=== PATIENT | female | born 1960 | race Caucasian/White ===

== ENCOUNTER 2017-12-01 15:23 | Emergency (ER) | payer MEDICARE, MEDICAID ==
[~2017-12-01] VITALS: Ht 154.9 cm; Wt 127.3 kg
[~2017-12-01 15:23] MED LIST: APIX5TAB3 PO; CHOL100046 PO; CYCL10TA26 PO; FURO-150 PO; HYDR-3972 PO; HYDR200T84 PO; LEVA0.6319 NEB; METF500T4 PO; METO5TAB98 PO; OMEP20TA5 PO; POTA8CAP9 PO; PRED10TA PO; ROFL500T7 PO; ROPI0.5T2 PO; SULF500T59 PO; SUMA100T PO; TRAM50TA2 PO
[2017-12-01] MEDS ORDERED: methylPREDNISolone sod succ 125mg/2ml vial IV ONE (16:05)
[2017-12-01] MEDS ORDERED: ipratropium/albuterol 3ml nebule NEB ONE (16:05)
[2017-12-01] MEDS ORDERED: furosemide 40mg/4ml inj IV ONE (16:05)
[2017-12-01 16:39] LABS: BASOPHILS % (AUTO) 0.2 % (0-1); EOSINOPHILS # (AUTO) 0.3 X10'3 (0-0.9); EOSINOPHILS % (AUTO) 1.9 % (0-6); HEMATOCRIT 32.1 % (35.0-45.0); HEMOGLOBIN 10.4 g/dl (12.0-16.0); LYMPHOCYTES # (AUTO) 1.2 X10'3 (1.1-4.8); LYMPHOCYTES % (AUTO) 8.2 % (21-51); MEAN CORPUSCULAR HEMOGLOBIN 25.3 PG (27.0-31.0); MEAN CORPUSCULAR HGB CONC 32.4 % (33.0-36.5); MEAN PLATELET VOLUME 8.5 FL (7.4-10.4); MONOCYTES # (AUTO) 0.6 X10'3 (0-0.9); MONOCYTES % (AUTO) 4.1 % (2-12); NEUTROPHILS # (AUTO) 12.2 X10'3 (1.8-7.7); NEUTROPHILS % (AUTO) 85.6 % (42-75); PLATELET COUNT 426 X10'3 (140-440); RED BLOOD COUNT 4.11 X10'6 (4.20-5.60); RED CELL DISTRIBUTION WIDTH 18.8 % (11.5-14.5); WHITE BLOOD COUNT 14.2 X10'3 (4.5-11.0)
[2017-12-01 17:01] LABS: ALANINE AMINOTRANSFERASE 17 U/L (12-78); ALBUMIN/GLOBULIN RATIO 0.6 (1.1-1.5); ALKALINE PHOSPHATASE 110 IU/L (46-116); ANION GAP 10 (8-16); ASPARTATE AMINO TRANSFERASE 23 U/L (10-37); BILIRUBIN,TOTAL 0.4 MG/DL (0.1-1.0); BLOOD UREA NITROGEN 5 MG/DL (7-18); BUN/CREATININE RATIO 7.9 (6.6-38.0); CALCIUM 9.3 MG/DL (8.5-10.1); CHLORIDE 99 MMOL/L (99-107); CREATININE 0.63 MG/DL (0.40-0.90); GLUCOSE 125 MG/DL (70-104); POTASSIUM 4.3 MMOL/L (3.5-5.1); SODIUM 138 MMOL/L (135-145); TOTAL CARBON DIOXIDE 29.1 MMOL/L (24-32); eGFR > 90 ML/MIN
[2017-12-01 17:13] LABS: INR 1.1 INR; PARTIAL THROMBOPLASTIN TIME 33 SECONDS (22-32); PROTHROMBIN TIME 11.1 SECONDS (9.0-12.0)
[2017-12-01 17:46] VITALS: BP 138/87
[2017-12-01 17:53] LABS: LARGE PLATELETS MODERATE
[2017-12-01 17:55] LABS: ANISOCYTOSIS 2+; POLYCHROMASIA FEW; STOMATOCYTES 1+
[2017-12-01 17:57] LABS: PLATELET ESTIMATE NORMAL
== END 2017-12-01 17:48 | disposition home or self-care (01) ==
LOC: ER 15:24
DX: J98.01 Acute bronchospasm (principal); I50.9 Heart failure, unspecified; I25.10 Atherosclerotic heart disease of native coronary artery without angina pectoris; I25.2 Old myocardial infarction; J44.9 Chronic obstructive pulmonary disease, unspecified; E11.9 Type 2 diabetes mellitus without complications; E78.00 Pure hypercholesterolemia, unspecified; K21.9 Gastro-esophageal reflux disease without esophagitis; Z88.8 Allergy status to other drugs, medicaments and biological substances
CPT/HCPCS: 36415; 71045; 80053; 83735; 83880; 84484; 85025; 85610; 85730; 94640; 94760; 96374; 96375; 99285; J1940; J2930

== ENCOUNTER 2018-01-17 12:02 | Emergency (ER) | payer MEDICARE, MEDICAID ==
[~2018-01-17] VITALS: Ht 154.9 cm; Wt 135.0 kg
[2018-01-17 12:06] VITALS: BP 115/73
== END 2018-01-17 12:29 | disposition home or self-care (01) ==
LOC: ER 12:02
DX: S50.12XA Contusion of left forearm, initial encounter (principal); I25.10 Atherosclerotic heart disease of native coronary artery without angina pectoris; I50.9 Heart failure, unspecified; E78.00 Pure hypercholesterolemia, unspecified; E11.9 Type 2 diabetes mellitus without complications; I25.2 Old myocardial infarction; J44.9 Chronic obstructive pulmonary disease, unspecified; K21.9 Gastro-esophageal reflux disease without esophagitis; G89.29 Other chronic pain; M06.9 Rheumatoid arthritis, unspecified; Z86.711 Personal history of pulmonary embolism; Z90.49 Acquired absence of other specified parts of digestive tract; Z98.890 Other specified postprocedural states; Z88.8 Allergy status to other drugs, medicaments and biological substances; Z79.84 Long term (current) use of oral hypoglycemic drugs; Z79.899 Other long term (current) drug therapy; W01.0XXA Fall on same level from slipping, tripping and stumbling without subsequent striking against object, initial encounter; Y93.89 Activity, other specified; Y92.89 Other specified places as the place of occurrence of the external cause; Y99.8 Other external cause status
CPT/HCPCS: 99281

== ENCOUNTER 2018-07-01 10:36 | Observation (INO) | payer MEDICARE, MEDICAID ==
[~2018-07-01] VITALS: Ht 157.5 cm; Wt 124.6 kg
[~2018-07-01 10:36] MED LIST changes: +METF-436 PO; -METF500T4 PO
[2018-07-01] MEDS ORDERED: nitroGLYCERIN 0.4mg SUBLingual tab SL PRN ×2 (10:55→20:25)
[2018-07-01] MEDS ORDERED: aspirin 81mg tab.chew PO ONE (10:55)
[2018-07-01] MEDS ORDERED: metoprolol tartrate 1mg/ml inj IV ONE (10:55)
[2018-07-01 11:17] LABS: HEMATOCRIT 37.3 % (35.0-45.0); HEMOGLOBIN 12.3 g/dl (12.0-16.0); INR 0.9 INR; PARTIAL THROMBOPLASTIN TIME 25 SECONDS (22-32); PROTHROMBIN TIME 9.8 SECONDS (9.0-12.0); RED BLOOD COUNT 4.29 X10'6 (4.20-5.60); WHITE BLOOD COUNT 16.6 X10'3 (4.5-11.0)
[2018-07-01 11:20] LABS: BASOPHILS # (AUTO) 0.1 X10'3 (0-0.2); BASOPHILS % (AUTO) 0.4 % (0-1); EOSINOPHILS # (AUTO) 0.1 X10'3 (0-0.9); EOSINOPHILS % (AUTO) 0.9 % (0-6); LYMPHOCYTES # (AUTO) 6.6 X10'3 (1.1-4.8); LYMPHOCYTES % (AUTO) 39.4 % (21-51); MEAN CORPUSCULAR HEMOGLOBIN 28.6 PG (27.0-31.0); MEAN CORPUSCULAR HGB CONC 32.9 % (33.0-36.5); MEAN PLATELET VOLUME 8.4 FL (7.4-10.4); MONOCYTES # (AUTO) 1.2 X10'3 (0-0.9); NEUTROPHILS # (AUTO) 8.6 X10'3 (1.8-7.7); NEUTROPHILS % (AUTO) 52.3 % (42-75); PLATELET COUNT 429 X10'3 (140-440); RED CELL DISTRIBUTION WIDTH 15.8 % (11.5-14.5)
[2018-07-01 11:23] LABS: ALANINE AMINOTRANSFERASE 27 U/L (12-78); ALBUMIN 3.5 G/DL (3.4-5.0); ALBUMIN/GLOBULIN RATIO 0.9 (1.1-1.5); ALKALINE PHOSPHATASE 89 IU/L (46-116); ANION GAP 11 (8-16); ASPARTATE AMINO TRANSFERASE 15 U/L (10-37); BILIRUBIN,TOTAL 0.2 MG/DL (0.1-1.0); BLOOD UREA NITROGEN 16 MG/DL (7-18); BUN/CREATININE RATIO 16.7 (6.6-38.0); CALCIUM 9.2 MG/DL (8.5-10.1); CHLORIDE 98 MMOL/L (99-107); CREATININE 0.96 MG/DL (0.40-0.90); GLUCOSE 160 MG/DL (70-104); POTASSIUM 3.4 MMOL/L (3.5-5.1); SODIUM 142 MMOL/L (135-145); TOTAL CARBON DIOXIDE 33.1 MMOL/L (24-32); TOTAL PROTEIN 7.2 G/DL (6.4-8.2); eGFR 60 ML/MIN
[2018-07-01] MEDS ORDERED: CefTRIAXone 2gm/D5W 50ml 50 ML IV ONE (11:25)
[2018-07-01] MEDS ORDERED: azithromycin/NS 500mg/250ml 250 ML IV ONE (11:25)
[2018-07-01] MEDS ORDERED: normal saline 1000ML IV soln IV ONE (11:25)
[2018-07-01] MEDS ORDERED: diltiazem 5mg/ml 5ml inj. IV ONE (12:10)
[2018-07-01 12:17] LABS: CLARITY,URINE CLEAR (Clear); COLOR,URINE YELLOW (Yellow); GLUCOSE, URINE NEGATIVE (Neg); KETONES,URINE NEGATIVE (Neg); LEUKOCYTE ESTERASE ,URINE NEGATIVE (Neg); NITRITES, URINE NEGATIVE (Neg); OCCULT BLOOD,URINE TRACE-INTACT (Neg); PH,URINE 5.5 (4.8-8.0); PROTEIN,URINE NEGATIVE (Neg); UROBILINOGEN,URINE 0.2 E.U/dL (0.2-1.0)
[2018-07-01 12:18] LABS: UA COLLECTION TYPE CLN CATCH MIDSTREAM
[2018-07-01 12:36] LABS: SQUAMOUS EPITHELIAL CELL,UR MANY /LPF (FEW)
[2018-07-01 12:43] LABS: BACTERIA,URINE 1+ /HPF (Neg)
[2018-07-01 12:45] LABS: YEAST FEW /HPF (NEGATIVE)
[2018-07-01] MEDS ORDERED: METO100T14 PO (13:02)
[2018-07-01] MEDS ORDERED: FERR324T2 PO (13:02)
[2018-07-01] MEDS ORDERED: BUDE10.22 INH (13:02)
[2018-07-01] MEDS ORDERED: ALEN70TA48 PO (13:08)
[2018-07-01] MEDS ORDERED: MORP30TA PO (13:12)
[2018-07-01] MEDS ORDERED: acetaminophen 325mg tablet PO PRN (14:35)
[2018-07-01] MEDS ORDERED: morphine ER 30mg tablet PO ONE (14:35)
[2018-07-01] MEDS ORDERED: magnesium hydroxide 30ml (MOM) UD suspension PO PRN (14:35)
[2018-07-01] MEDS ORDERED: mag hydrox/Alum hydrox/simeth 30ml oral suspension PO PRN (14:35)
[2018-07-01] MEDS ORDERED: SUMAtriptan 25 MG tablet PO PRN (14:50)
[2018-07-01] MEDS ORDERED: non-formulary drug (Budesonide/Formoterol Fumarate (Symbicort 80-4.5 Mcg Inhaler) 2 PUFFS) INH SCH (14:50)
[2018-07-01] MEDS ORDERED: non-formulary drug (Alendronate Sodium* (Fosamax*) 1 TABLET) PO SCH (14:50)
[2018-07-01 14:53] LABS: URINE HCG NEGATIVE (NEG)
[2018-07-01 14:55] LABS: CLARITY,URINE CLEAR (Clear); COLOR,URINE YELLOW (Yellow); GLUCOSE, URINE NEGATIVE (Neg); KETONES,URINE NEGATIVE (Neg); LEUKOCYTE ESTERASE ,URINE NEGATIVE (Neg); NITRITES, URINE NEGATIVE (Neg); OCCULT BLOOD,URINE SMALL (Neg); PH,URINE 5.5 (4.8-8.0); PROTEIN,URINE NEGATIVE (Neg); UROBILINOGEN,URINE 0.2 E.U/dL (0.2-1.0)
[2018-07-01 14:56] LABS: UA COLLECTION TYPE CLN CATCH MIDSTREAM
[2018-07-01 15:09] LABS: BACTERIA,URINE 1+ /HPF (Neg); SQUAMOUS EPITHELIAL CELL,UR MANY /LPF (FEW)
[2018-07-01 15:10] LABS: HYALINE CASTS 0-3 /LPF (NEGATIVE); YEAST FEW /HPF (NEGATIVE)
[2018-07-01 15:11] LABS: RBC,URINE 0-2 /HPF (0-2)
[2018-07-01 16:50] VITALS: BP 111/64
[2018-07-01] MEDS: morphine IR (immed. release) 30mg tablet PO SCH ×2 (17:44→22:13)
[2018-07-01] MEDS ORDERED: glucagon, human recombinant 1mg kit SUBCUT PRN (17:45)
[2018-07-01] MEDS ORDERED: MESSAGE TO PHARMACY PO ONE (17:45)
[2018-07-01] MEDS ORDERED: dextrose 50%-water 50ml dispensing syringe IV PRN ×2 (17:45)
[2018-07-01] MEDS ORDERED: insulin Lispro (HumaLOG) vial - multi-dose SQ SCH (17:45)
[2018-07-01] MEDS ORDERED: magnesium 4gm in 100ml NS 100 ML IV PRN (17:45)
[2018-07-01] MEDS ORDERED: magnesium Cl slow-release 64mg tablet PO PRN (17:45)
[2018-07-01] MEDS ORDERED: potassium Cl 40MEQ/NS 500ml 500 ML IV PRN ×2 (17:45)
[2018-07-01] MEDS ORDERED: dextrose ORAL solution 15 GM/59 ML bottle PO PRN ×2 (17:45)
[2018-07-01] MEDS ORDERED: potassium Cl 20 mEq SR tablet PO PRN ×2 (17:45)
[2018-07-01 18:26] LABS: HEMOGLOBIN A1C 5.8 % (4.5-6.2)
[2018-07-01 19:00] VITALS: BP 104/55
[2018-07-01] MEDS ORDERED: albuterol 2.5 MG/3 ML nebule NEB SCH (19:00)
[2018-07-01] MEDS: pantoprazole 40mg Tablet.DR PO SCH (19:47)
[2018-07-01] MEDS: hydroxychloroquine 200mg tablet PO SCH (19:47)
[2018-07-01] MEDS: vitamin D (cholecalciferol) 1,000 unit tablet PO SCH (19:47)
[2018-07-01] MEDS: traMADol 50MG tablet PO SCH (19:48)
[2018-07-01] MEDS: apixaban 5mg tablet PO SCH (19:48)
[2018-07-01] MEDS: metoprolol tartrate 50mg tablet PO SCH (19:56)
[2018-07-01] MEDS ORDERED: BUDESONIDE 0.25 MG/2 ML AMPUL.NEB IH SCH (20:00)
[2018-07-01] MEDS ORDERED: CAFFEINE CITRATE 60 MG/3 ML injection vial IV PRN (20:25)
[2018-07-01] MEDS ORDERED: regadenoson 0.4mg/5ml syringe IV PRN (20:25)
[2018-07-01] MEDS ORDERED: metoprolol tartrate 1mg/ml inj IV PRN (20:25)
[2018-07-01] MEDS ORDERED: insulin glargine (Lantus) pen - multi-dose SQ SCH (21:00)
[2018-07-01] MEDS ORDERED: ROPINIRole 0.25mg tablet PO SCH (21:00)
[2018-07-01] MEDS: cyclobenzaprine 10mg tablet PO SCH (22:12)
[2018-07-01] MEDS: sulfaSALAZINE 500 MG tablet PO SCH (22:12)
[2018-07-01 22:57] LABS: HEMATOCRIT 32.5 % (35.0-45.0); HEMOGLOBIN 10.4 g/dl (12.0-16.0); MEAN CORPUSCULAR VOLUME 87.4 FL (78-98); RED BLOOD COUNT 3.72 X10'6 (4.20-5.60)
[2018-07-01 22:58] LABS: MEAN CORPUSCULAR HGB CONC 32.1 % (33.0-36.5); MEAN PLATELET VOLUME 8.1 FL (7.4-10.4); PLATELET COUNT 292 X10'3 (140-440); RED CELL DISTRIBUTION WIDTH 15.8 % (11.5-14.5)
[2018-07-01 22:59] LABS: LYMPHOCYTES % (AUTO) 33.7 % (21-51); MONOCYTES % (AUTO) 8.2 % (2-12); NEUTROPHILS % (AUTO) 56.5 % (42-75)
[2018-07-01 23:00] VITALS: BP 93/56
[2018-07-01 23:01] LABS: BASOPHILS % (AUTO) 0.3 % (0-1); EOSINOPHILS # (AUTO) 0.1 X10'3 (0-0.9); EOSINOPHILS % (AUTO) 1.3 % (0-6); MONOCYTES # (AUTO) 0.7 X10'3 (0-0.9); NEUTROPHILS # (AUTO) 5.2 X10'3 (1.8-7.7)
[2018-07-02] VITALS (13 sets, daily range): BP systolic 93–111; BP diastolic 52–69
[2018-07-02] MEDS: traMADol 50MG tablet PO SCH ×3 (02:20→15:11)
[2018-07-02 05:57] LABS: ALBUMIN 2.8 G/DL (3.4-5.0); ANION GAP 4 (8-16); BLOOD UREA NITROGEN 8 MG/DL (7-18); BUN/CREATININE RATIO 11.3 (6.6-38.0); CALCIUM 8.8 MG/DL (8.5-10.1); CHLORIDE 104 MMOL/L (99-107); CHOL/HDL RATIO 2.1 (0.00-4.99); CHOLESTEROL 120 MG/DL (0-200); CREATININE 0.71 MG/DL (0.40-0.90); GLUCOSE 85 MG/DL (70-104); HDL CHOLESTEROL 56 MG/DL (35-60); LDL CHOLESTEROL 52 MG/DL (50-100); POTASSIUM 4.7 MMOL/L (3.5-5.1); SODIUM 143 MMOL/L (135-145); TOTAL CARBON DIOXIDE 34.8 MMOL/L (24-32); TRIGLYCERIDES 155 MG/DL (20-135); eGFR 85 ML/MIN
[2018-07-02] MEDS: pantoprazole 40mg Tablet.DR PO SCH (07:26)
[2018-07-02] MEDS: vitamin D (cholecalciferol) 1,000 unit tablet PO SCH (07:27)
[2018-07-02] MEDS: apixaban 5mg tablet PO SCH (07:27)
[2018-07-02] MEDS: cyclobenzaprine 10mg tablet PO SCH ×2 (07:28→12:20)
[2018-07-02] MEDS: morphine IR (immed. release) 30mg tablet PO SCH ×2 (07:29→12:19)
[2018-07-02] MEDS: metoprolol tartrate 50mg tablet PO SCH (07:31)
[2018-07-02] MEDS: sulfaSALAZINE 500 MG tablet PO SCH ×2 (07:31→12:19)
[2018-07-02] MEDS: hydroxychloroquine 200mg tablet PO SCH (07:57)
[2018-07-02] MEDS ORDERED: ferrous sulfate 325mg tablet PO SCH (08:00)
[2018-07-02] MEDS ORDERED: ROFLUMILAST 500 MG PO SCH (08:00)
[2018-07-02] MEDS ORDERED: prednisone 10mg tablet PO SCH (08:00)
[2018-07-02] MEDS ORDERED: furosemide 20MG tablet PO SCH (08:00)
[2018-07-02] MEDS ORDERED: potassium chloride 8mEq ER tablet PO SCH (08:00)
[2018-07-02] MEDS ORDERED: POTASSIUM CHLORIDE 8 MEQ PO SCH (08:00)
[2018-07-02 08:20] LABS: HEMATOCRIT 30.1 % (35.0-45.0); HEMOGLOBIN 10.1 g/dl (12.0-16.0); MEAN CORPUSCULAR VOLUME 87.8 FL (78-98); RED BLOOD COUNT 3.43 X10'6 (4.20-5.60); WHITE BLOOD COUNT 8.3 X10'3 (4.5-11.0)
[2018-07-02 08:21] LABS: BASOPHILS % (AUTO) 0.2 % (0-1); EOSINOPHILS # (AUTO) 0.1 X10'3 (0-0.9); EOSINOPHILS % (AUTO) 1.4 % (0-6); LYMPHOCYTES # (AUTO) 3.1 X10'3 (1.1-4.8); MEAN CORPUSCULAR HEMOGLOBIN 29.3 PG (27.0-31.0); MEAN CORPUSCULAR HGB CONC 33.4 % (33.0-36.5); MEAN PLATELET VOLUME 8.3 FL (7.4-10.4); MONOCYTES # (AUTO) 0.7 X10'3 (0-0.9); MONOCYTES % (AUTO) 8.1 % (2-12); NEUTROPHILS # (AUTO) 4.4 X10'3 (1.8-7.7); NEUTROPHILS % (AUTO) 52.3 % (42-75); PLATELET COUNT 276 X10'3 (140-440); RED CELL DISTRIBUTION WIDTH 15.8 % (11.5-14.5)
[2018-07-02] MEDS ORDERED: regadenoson 0.4mg/5ml syringe IV ONE (10:14)
[2018-07-02] MEDS ORDERED: CAFFEINE CITRATE 60 MG/3 ML injection vial IV ONE (10:14)
[2018-07-02] MEDS ORDERED: ISOS30TA9 PO (16:08)
== END 2018-07-02 17:22 | disposition home or self-care (01) ==
LOC: ER 10:36 → ED HOLD 14:31 → PCU 3S 16:40
PROVIDERS: ADMIT Hospitalist; ATTEND Hospitalist
DX: I25.119 Atherosclerotic heart disease of native coronary artery with unspecified angina pectoris (principal); J44.9 Chronic obstructive pulmonary disease, unspecified; J96.10 Chronic respiratory failure, unspecified whether with hypoxia or hypercapnia; I13.0 Hypertensive heart and chronic kidney disease with heart failure and stage 1 through stage 4 chronic kidney disease, or unspecified chronic kidney disease; I50.9 Heart failure, unspecified; E11.22 Type 2 diabetes mellitus with diabetic chronic kidney disease; N18.9 Chronic kidney disease, unspecified; K21.9 Gastro-esophageal reflux disease without esophagitis; G47.33 Obstructive sleep apnea (adult) (pediatric); E78.00 Pure hypercholesterolemia, unspecified; I25.2 Old myocardial infarction; M06.9 Rheumatoid arthritis, unspecified; G89.4 Chronic pain syndrome; D72.829 Elevated white blood cell count, unspecified; M81.0 Age-related osteoporosis without current pathological fracture; E66.01 Morbid (severe) obesity due to excess calories; Z86.711 Personal history of pulmonary embolism; Z86.73 Personal history of transient ischemic attack (TIA), and cerebral infarction without residual deficits; Z96.653 Presence of artificial knee joint, bilateral; Z99.81 Dependence on supplemental oxygen; Z82.3 Family history of stroke; Z82.49 Family history of ischemic heart disease and other diseases of the circulatory system; Z82.5 Family history of asthma and other chronic lower respiratory diseases; Z83.3 Family history of diabetes mellitus
CPT/HCPCS: 36415; 71045; 78452; 80048; 80053; 80061; 81001; 81025; 82948; 83036; 83605; 83880; 84145; 84484; 85025; 85610; 85730; 87040; 93005; 93017; 93306; 96365; 96366; 96368; 96375; 99285; A9500; G0378; J0456; J0696; J3490; J7512; J8597; J1815

== ENCOUNTER 2018-08-05 04:45 | Inpatient (IN) | payer MEDICARE, MEDICAID ==
[~2018-08-05] VITALS: Ht 157.5 cm; Wt 130.0 kg
[~2018-08-05 04:45] MED LIST changes: +ALEN70TA48 PO; +BUDE10.22 INH; +FERR324T2 PO; -HYDR-3972 PO; -LEVA0.6319 NEB; -METF-436 PO; +METO100T14 PO; +MORP30TA PO
[2018-08-05] MEDS ORDERED: ondansetron/PF 4mg/2ml inj IV ONE (04:50)
[2018-08-05] MEDS ORDERED: normal saline 1000ML IV soln IVB ONE (04:50)
[2018-08-05 06:07] LABS: ALANINE AMINOTRANSFERASE 70 U/L (12-78); ALBUMIN 3.2 G/DL (3.4-5.0); ALBUMIN/GLOBULIN RATIO 0.8 (1.1-1.5); ALKALINE PHOSPHATASE 112 IU/L (46-116); ANION GAP 8 (8-16); ASPARTATE AMINO TRANSFERASE 114 U/L (10-37); BILIRUBIN,TOTAL 0.5 MG/DL (0.1-1.0); BLOOD UREA NITROGEN 15 MG/DL (7-18); BUN/CREATININE RATIO 16.7 (6.6-38.0); CALCIUM 9.8 MG/DL (8.5-10.1); CHLORIDE 97 MMOL/L (99-107); GLUCOSE 162 MG/DL (70-104); POTASSIUM 3.8 MMOL/L (3.5-5.1); SODIUM 140 MMOL/L (135-145); TOTAL CARBON DIOXIDE 34.7 MMOL/L (24-32); eGFR 65 ML/MIN
[2018-08-05 06:10] LABS: LIPASE 105 U/L (73-393); TROPONIN I < 0.04 NG/ML (0.0-0.05)
[2018-08-05 06:47] LABS: BASOPHILS % (AUTO) 0.3 % (0-1); EOSINOPHILS # (AUTO) 0.2 X10'3 (0-0.9); EOSINOPHILS % (AUTO) 1.3 % (0-6); HEMATOCRIT 37.2 % (35.0-45.0); LYMPHOCYTES # (AUTO) 2.3 X10'3 (1.1-4.8); MEAN CORPUSCULAR HEMOGLOBIN 28.1 PG (27.0-31.0); MEAN CORPUSCULAR HGB CONC 32.4 % (33.0-36.5); MEAN CORPUSCULAR VOLUME 86.9 FL (78-98); MONOCYTES # (AUTO) 0.8 X10'3 (0-0.9); NEUTROPHILS # (AUTO) 10.2 X10'3 (1.8-7.7); NEUTROPHILS % (AUTO) 75.4 % (42-75); PLATELET COUNT 265 X10'3 (140-440); RED BLOOD COUNT 4.28 X10'6 (4.20-5.60); RED CELL DISTRIBUTION WIDTH 16.5 % (11.5-14.5); WHITE BLOOD COUNT 13.5 X10'3 (4.5-11.0)
[2018-08-05] MEDS ORDERED: levoFLOXACIN 750MG TABLET PO ONE (07:05)
[2018-08-05] MEDS ORDERED: CefTRIAXone 2gm/D5W 50ml 50 ML IV ONE (07:05)
[2018-08-05] MEDS ORDERED: morphine 4 MG/ML inj SYRINge IV ONE (08:05)
[2018-08-05] MEDS ORDERED: magnesium Cl slow-release 64mg tablet PO PRN (08:30)
[2018-08-05] MEDS ORDERED: potassium Cl 40MEQ/NS 500ml 500 ML IV PRN ×2 (08:30)
[2018-08-05] MEDS ORDERED: magnesium 1gm/100ml D5W IVPB 100 ML IV PRN (08:30)
[2018-08-05] MEDS ORDERED: magnesium 4gm in 100ml NS 100 ML IV PRN (08:30)
[2018-08-05] MEDS ORDERED: potassium Cl 20 mEq SR tablet PO PRN ×2 (08:30)
[2018-08-05] MEDS ORDERED: ondansetron/PF 4mg/2ml inj IV PRN (08:30)
[2018-08-05] MEDS ORDERED: pantoprazole 40 MG vial IV SCH (08:40)
[2018-08-05] MEDS ORDERED: morphine 2 MG/ML inj. syringe IV PRN (08:55)
[2018-08-05] MEDS: normal saline 1000ml 1,000 ML IV SCH ×2 (09:17→20:47)
[2018-08-05] MEDS: morphine 2 MG/ML inj. syringe IV PRN ×2 (10:58→15:43)
[2018-08-05 11:45] VITALS: BP_SYST 74
[2018-08-05 13:53] LABS: CLARITY,URINE CLEAR (Clear); COLOR,URINE YELLOW (Yellow); GLUCOSE, URINE NEGATIVE (Neg); KETONES,URINE NEGATIVE (Neg); LEUKOCYTE ESTERASE ,URINE NEGATIVE (Neg); NITRITES, URINE NEGATIVE (Neg); OCCULT BLOOD,URINE SMALL (Neg); PROTEIN,URINE NEGATIVE (Neg); UROBILINOGEN,URINE 0.2 E.U/dL (0.2-1.0)
[2018-08-05 13:54] LABS: UA COLLECTION TYPE NON-SPECIFIED
[2018-08-05 14:10] LABS: WBC,URINE 0-4 /HPF (0-4)
[2018-08-05 14:11] LABS: BACTERIA,URINE NONE SEEN /HPF (Neg); SQUAMOUS EPITHELIAL CELL,UR FEW /LPF (FEW)
[2018-08-05] MEDS ORDERED: methylPREDNISolone sod succ/PF 40mg inj. IV ONE (14:51)
[2018-08-05] MEDS: CefTRIAXone/D5W-Rocephin 1gm 50 ML IV SCH (15:50)
[2018-08-05 20:00] VITALS: BP 115/72
[2018-08-05] MEDS: methylPREDNISolone sod succ/PF 40mg inj. IV SCH (20:47)
[2018-08-05] MEDS: morphine IR (immed. release) 30mg tablet PO SCH (20:48)
[2018-08-05] MEDS ORDERED: SUMATRIPTAN SUCCINATE PO PRN (21:45)
[2018-08-05] MEDS ORDERED: ROPINIRole 0.25mg tablet PO ONE (21:55)
[2018-08-05] MEDS ORDERED: SUMAtriptan 25 MG tablet PO PRN (22:00)
[2018-08-06] VITALS: BP 118/73
[2018-08-06] MEDS: normal saline 1000ml 1,000 ML IV SCH ×2 (05:43→16:07)
[2018-08-06 06:03] LABS: BASOPHILS % (AUTO) 0.2 % (0-1); EOSINOPHILS # (AUTO) 0.1 X10'3 (0-0.9); EOSINOPHILS % (AUTO) 1.4 % (0-6); HEMATOCRIT 34.5 % (35.0-45.0); HEMOGLOBIN 11.1 g/dl (12.0-16.0); LYMPHOCYTES # (AUTO) 1.5 X10'3 (1.1-4.8); LYMPHOCYTES % (AUTO) 14.3 % (21-51); MEAN CORPUSCULAR HEMOGLOBIN 28.4 PG (27.0-31.0); MEAN CORPUSCULAR HGB CONC 32.2 % (33.0-36.5); MEAN CORPUSCULAR VOLUME 88.1 FL (78-98); MEAN PLATELET VOLUME 8.4 FL (7.4-10.4); MONOCYTES # (AUTO) 0.2 X10'3 (0-0.9); MONOCYTES % (AUTO) 2.2 % (2-12); NEUTROPHILS # (AUTO) 8.6 X10'3 (1.8-7.7); NEUTROPHILS % (AUTO) 81.9 % (42-75); PLATELET COUNT 263 X10'3 (140-440); RED BLOOD COUNT 3.92 X10'6 (4.20-5.60); RED CELL DISTRIBUTION WIDTH 16.8 % (11.5-14.5); WHITE BLOOD COUNT 10.5 X10'3 (4.5-11.0)
[2018-08-06 06:12] LABS: ALBUMIN 2.7 G/DL (3.4-5.0); ANION GAP 11 (8-16); BLOOD UREA NITROGEN 11 MG/DL (7-18); BUN/CREATININE RATIO 16.9 (6.6-38.0); CALCIUM 8.9 MG/DL (8.5-10.1); CHLORIDE 103 MMOL/L (99-107); CREATININE 0.65 MG/DL (0.40-0.90); GLUCOSE 123 MG/DL (70-104); MAGNESIUM 1.9 MG/DL (1.5-2.4); POTASSIUM 4.2 MMOL/L (3.5-5.1); SODIUM 141 MMOL/L (135-145); TOTAL CARBON DIOXIDE 27.2 MMOL/L (24-32); eGFR > 90 ML/MIN
[2018-08-06 06:30] VITALS: BP 137/71
[2018-08-06] MEDS: K and/or MAG REPLACEMENT MC SCH (06:45)
[2018-08-06 07:00] VITALS: BP 137/71
[2018-08-06] MEDS ORDERED: non-formulary drug (Metoprolol Tartrate 1 TAB) PO SCH (08:00)
[2018-08-06] MEDS ORDERED: FERROUS GLUCONATE PO SCH (08:00)
[2018-08-06] MEDS: apixaban 5mg tablet PO SCH ×2 (08:00→20:48)
[2018-08-06] MEDS: ferrous gluconate 324mg tablet PO SCH (08:00)
[2018-08-06] MEDS: hydroxychloroquine 200mg tablet PO SCH ×2 (08:00→20:49)
[2018-08-06] MEDS ORDERED: POTASSIUM CHLORIDE 8 MEQ PO SCH (08:00)
[2018-08-06] MEDS ORDERED: non-formulary drug (Omeprazole 2 TAB) PO SCH (08:00)
[2018-08-06] MEDS ORDERED: morphine IR (immed. release) 30mg tablet PO SCH (08:00)
[2018-08-06] MEDS: morphine IR (immed. release) 30mg tablet PO SCH ×4 (08:03→20:49)
[2018-08-06] MEDS: potassium chloride 8mEq ER tablet PO SCH (08:03)
[2018-08-06] MEDS: metoprolol tartrate 50mg tablet PO SCH ×2 (08:05→20:48)
[2018-08-06] MEDS: pantoprazole 40mg Tablet.DR PO SCH ×2 (08:05→20:49)
[2018-08-06] MEDS: furosemide 20MG tablet PO SCH (08:06)
[2018-08-06] MEDS: cyclobenzaprine 10mg tablet PO SCH ×3 (08:06→20:50)
[2018-08-06] MEDS: methylPREDNISolone sod succ/PF 40mg inj. IV SCH ×2 (08:39→20:47)
[2018-08-06] MEDS: CefTRIAXone/D5W-Rocephin 1gm 50 ML IV SCH (08:42)
[2018-08-06] MEDS: azithromycin/NS 500mg/250ml 250 ML IV SCH (09:56)
[2018-08-06] MEDS: sulfaSALAZINE 500 MG tablet PO SCH ×3 (10:00→20:49)
[2018-08-06 11:12] VITALS: BP 117/50
[2018-08-06 12:05] VITALS: BP 117/58
[2018-08-06 20:00] VITALS: BP 106/68
[2018-08-06] MEDS: lactobacillus rhamnosus 10,000 MMU CELLS/CAPSULE PO SCH (20:47)
[2018-08-06] MEDS ORDERED: ROPINIRole 0.25mg tablet PO SCH (21:00)
[2018-08-06] MEDS ORDERED: ROPINIROLE HCL 0.5 MG PO SCH (21:00)
[2018-08-07] VITALS: BP 142/69
[2018-08-07] MEDS: normal saline 1000ml 1,000 ML IV SCH ×2 (01:59→13:00)
[2018-08-07 06:14] LABS: BASOPHILS % (AUTO) 0.3 % (0-1); EOSINOPHILS % (AUTO) 0.6 % (0-6); HEMATOCRIT 33.1 % (35.0-45.0); HEMOGLOBIN 10.5 g/dl (12.0-16.0); LYMPHOCYTES # (AUTO) 1.5 X10'3 (1.1-4.8); LYMPHOCYTES % (AUTO) 19.7 % (21-51); MEAN CORPUSCULAR HEMOGLOBIN 27.9 PG (27.0-31.0); MEAN CORPUSCULAR HGB CONC 31.8 % (33.0-36.5); MEAN CORPUSCULAR VOLUME 87.8 FL (78-98); MEAN PLATELET VOLUME 7.8 FL (7.4-10.4); MONOCYTES # (AUTO) 0.3 X10'3 (0-0.9); MONOCYTES % (AUTO) 3.5 % (2-12); NEUTROPHILS # (AUTO) 5.6 X10'3 (1.8-7.7); NEUTROPHILS % (AUTO) 75.9 % (42-75); PLATELET COUNT 309 X10'3 (140-440); RED BLOOD COUNT 3.77 X10'6 (4.20-5.60); RED CELL DISTRIBUTION WIDTH 16.9 % (11.5-14.5); WHITE BLOOD COUNT 7.4 X10'3 (4.5-11.0)
[2018-08-07 06:20] LABS: ALBUMIN 2.7 G/DL (3.4-5.0); ANION GAP 7 (8-16); BLOOD UREA NITROGEN 10 MG/DL (7-18); BUN/CREATININE RATIO 15.4 (6.6-38.0); CALCIUM 8.8 MG/DL (8.5-10.1); CHLORIDE 105 MMOL/L (99-107); CREATININE 0.65 MG/DL (0.40-0.90); GLUCOSE 133 MG/DL (70-104); MAGNESIUM 2.1 MG/DL (1.5-2.4); POTASSIUM 4.3 MMOL/L (3.5-5.1); SODIUM 142 MMOL/L (135-145); TOTAL CARBON DIOXIDE 30.4 MMOL/L (24-32); eGFR > 90 ML/MIN
[2018-08-07] MEDS: CefTRIAXone/D5W-Rocephin 1gm 50 ML IV SCH (07:35)
[2018-08-07] MEDS: hydroxychloroquine 200mg tablet PO SCH (07:35)
[2018-08-07] MEDS: sulfaSALAZINE 500 MG tablet PO SCH ×2 (07:35→12:58)
[2018-08-07] MEDS: metoprolol tartrate 50mg tablet PO SCH (07:36)
[2018-08-07] MEDS: ferrous gluconate 324mg tablet PO SCH (07:36)
[2018-08-07] MEDS: apixaban 5mg tablet PO SCH (07:36)
[2018-08-07] MEDS: pantoprazole 40mg Tablet.DR PO SCH (07:36)
[2018-08-07] MEDS: cyclobenzaprine 10mg tablet PO SCH ×2 (07:36→12:58)
[2018-08-07] MEDS: morphine IR (immed. release) 30mg tablet PO SCH ×2 (07:37→13:00)
[2018-08-07] MEDS: methylPREDNISolone sod succ/PF 40mg inj. IV SCH (07:37)
[2018-08-07] MEDS: potassium chloride 8mEq ER tablet PO SCH (07:37)
[2018-08-07] MEDS: furosemide 20MG tablet PO SCH (07:37)
[2018-08-07] MEDS: lactobacillus rhamnosus 10,000 MMU CELLS/CAPSULE PO SCH (07:37)
[2018-08-07 08:00] VITALS: BP 134/68
[2018-08-07] MEDS: K and/or MAG REPLACEMENT MC SCH (08:00)
[2018-08-07] MEDS: azithromycin/NS 500mg/250ml 250 ML IV SCH (09:21)
[2018-08-07 12:15] VITALS: BP 128/57
[2018-08-07] MEDS ORDERED: AMOX-422 PO (13:06)
== END 2018-08-07 14:00 | disposition home or self-care (01) | DRG 871 ==
LOC: ER 04:45 → ED HOLD 08:28 → SUR 3N 09:40
PROVIDERS: ADMIT Internal Medicine; ATTEND Internal Medicine
DX: A41.9 Sepsis, unspecified organism (principal); J18.1 Lobar pneumonia, unspecified organism; Z68.41 Body mass index [BMI] 40.0-44.9, adult; J44.1 Chronic obstructive pulmonary disease with (acute) exacerbation; J44.0 Chronic obstructive pulmonary disease with (acute) lower respiratory infection; I50.30 Unspecified diastolic (congestive) heart failure; J96.10 Chronic respiratory failure, unspecified whether with hypoxia or hypercapnia; E66.01 Morbid (severe) obesity due to excess calories; E11.9 Type 2 diabetes mellitus without complications; E78.00 Pure hypercholesterolemia, unspecified; E78.5 Hyperlipidemia, unspecified; G25.81 Restless legs syndrome; G47.30 Sleep apnea, unspecified; G89.4 Chronic pain syndrome; I11.0 Hypertensive heart disease with heart failure; I25.10 Atherosclerotic heart disease of native coronary artery without angina pectoris; I48.2 Chronic atrial fibrillation; M06.9 Rheumatoid arthritis, unspecified; M19.90 Unspecified osteoarthritis, unspecified site; M81.0 Age-related osteoporosis without current pathological fracture; Z96.653 Presence of artificial knee joint, bilateral; G43.909 Migraine, unspecified, not intractable, without status migrainosus; K21.9 Gastro-esophageal reflux disease without esophagitis; K29.70 Gastritis, unspecified, without bleeding; T38.0X5A Adverse effect of glucocorticoids and synthetic analogues, initial encounter; I25.2 Old myocardial infarction; Z79.52 Long term (current) use of systemic steroids; Z79.01 Long term (current) use of anticoagulants; Z79.51 Long term (current) use of inhaled steroids; Z79.83 Long term (current) use of bisphosphonates; Z99.81 Dependence on supplemental oxygen; Z98.891 History of uterine scar from previous surgery; Z90.49 Acquired absence of other specified parts of digestive tract; Z88.8 Allergy status to other drugs, medicaments and biological substances; Z88.6 Allergy status to analgesic agent; Z86.711 Personal history of pulmonary embolism; Z82.3 Family history of stroke; Z82.49 Family history of ischemic heart disease and other diseases of the circulatory system; Z82.5 Family history of asthma and other chronic lower respiratory diseases; Z83.3 Family history of diabetes mellitus; Y92.89 Other specified places as the place of occurrence of the external cause
CPT/HCPCS: 36415; 71045; 71250; 74176; 80048; 80053; 81001; 83605; 83690; 83735; 84145; 84484; 85025; 87070; 87077; 87186; 90471; 93005; 96361; 96365; 96375; 99285; C9113; G0378; J0456; J0696; J2270; J2405; J2920; J7030

== ENCOUNTER 2018-09-02 06:15 | Inpatient (IN) | payer MEDICARE, MEDICAID ==
[~2018-09-02] VITALS: Ht 154.9 cm; Wt 128.1 kg
[2018-09-02 06:34] LABS: BASOPHILS # (AUTO) 0.1 X10'3 (0-0.2); BASOPHILS % (AUTO) 0.5 % (0-1); EOSINOPHILS # (AUTO) 0.3 X10'3 (0-0.9); EOSINOPHILS % (AUTO) 2.1 % (0-6); HEMATOCRIT 33.1 % (35.0-45.0); HEMOGLOBIN 10.6 g/dl (12.0-16.0); LYMPHOCYTES # (AUTO) 3.4 X10'3 (1.1-4.8); LYMPHOCYTES % (AUTO) 26.2 % (21-51); MEAN CORPUSCULAR HEMOGLOBIN 27.8 PG (27.0-31.0); MEAN CORPUSCULAR HGB CONC 32.2 % (33.0-36.5); MEAN CORPUSCULAR VOLUME 86.4 FL (78-98); MONOCYTES # (AUTO) 0.8 X10'3 (0-0.9); MONOCYTES % (AUTO) 6.1 % (2-12); NEUTROPHILS # (AUTO) 8.5 X10'3 (1.8-7.7); NEUTROPHILS % (AUTO) 65.1 % (42-75); PLATELET COUNT 285 X10'3 (140-440); RED BLOOD COUNT 3.83 X10'6 (4.20-5.60); RED CELL DISTRIBUTION WIDTH 16.3 % (11.5-14.5); WHITE BLOOD COUNT 13.1 X10'3 (4.5-11.0)
[2018-09-02 06:51] LABS: ALANINE AMINOTRANSFERASE 56 U/L (12-78); ALBUMIN 2.7 G/DL (3.4-5.0); ALBUMIN/GLOBULIN RATIO 0.6 (1.1-1.5); ALKALINE PHOSPHATASE 167 IU/L (46-116); ANION GAP 8 (8-16); ASPARTATE AMINO TRANSFERASE 110 U/L (10-37); BILIRUBIN,TOTAL 0.5 MG/DL (0.1-1.0); BLOOD UREA NITROGEN 10 MG/DL (7-18); BUN/CREATININE RATIO 13.2 (6.6-38.0); CALCIUM 9.2 MG/DL (8.5-10.1); CHLORIDE 96 MMOL/L (99-107); CREATININE 0.76 MG/DL (0.40-0.90); GLUCOSE 148 MG/DL (70-104); POTASSIUM 3.8 MMOL/L (3.5-5.1); SODIUM 136 MMOL/L (135-145); TOTAL CARBON DIOXIDE 31.7 MMOL/L (24-32); TOTAL PROTEIN 6.9 G/DL (6.4-8.2); eGFR 78 ML/MIN
[2018-09-02 07:09] LABS: INR 1.1 INR; PARTIAL THROMBOPLASTIN TIME 27 SECONDS (22-32); PROTHROMBIN TIME 10.8 SECONDS (9.0-12.0)
[2018-09-02] MEDS ORDERED: normal saline 1000ML IV soln IVB ONE (07:25)
[2018-09-02 07:29] LABS: CLARITY,URINE CLEAR (Clear); COLOR,URINE YELLOW (Yellow); GLUCOSE, URINE NEGATIVE (Neg); KETONES,URINE TRACE mg/dl (Neg); LEUKOCYTE ESTERASE ,URINE NEGATIVE (Neg); NITRITES, URINE NEGATIVE (Neg); OCCULT BLOOD,URINE LARGE (Neg); PH,URINE 6.5 (4.8-8.0); PROTEIN,URINE NEGATIVE (Neg); UROBILINOGEN,URINE 0.2 E.U/dL (0.2-1.0)
[2018-09-02 07:32] LABS: UA COLLECTION TYPE CLN CATCH MIDSTREAM
[2018-09-02 07:35] LABS: BACTERIA,URINE NONE SEEN /HPF (Neg); MUCUS STRANDS NONE SEEN /LPF (Neg); SQUAMOUS EPITHELIAL CELL,UR MODERATE /LPF (FEW); WBC,URINE NONE SEEN /HPF (0-4)
[2018-09-02] MEDS ORDERED: iohexol 350MG/ML 100ml bottle IV ONE (07:46)
[2018-09-02] MEDS: MESSAGE TO NURSING PO NR ×2 (08:21→10:00)
[2018-09-02] MEDS ORDERED: CefTRIAXone 2gm/D5W 50ml 50 ML IV ONE (08:40)
[2018-09-02] MEDS ORDERED: PRED5TAB PO (08:42)
[2018-09-02] MEDS ORDERED: ROPI0.5T2 PO (08:42)
[2018-09-02] MEDS ORDERED: ISOS30TA9 PO (08:46)
[2018-09-02] MEDS ORDERED: ipratropium/albuterol 3ml nebule NEB ONE (09:00)
[2018-09-02] MEDS ORDERED: potassium Cl 40MEQ/NS 500ml 500 ML IV PRN ×2 (09:15)
[2018-09-02] MEDS ORDERED: ondansetron/PF 4mg/2ml inj IV PRN (09:15)
[2018-09-02] MEDS ORDERED: enoxaparin 40mg/0.4ml syringe SUBCUT SCH (09:15)
[2018-09-02] MEDS ORDERED: magnesium Cl slow-release 64mg tablet PO PRN (09:15)
[2018-09-02] MEDS ORDERED: acetaminophen 325mg tablet PO PRN (09:15)
[2018-09-02] MEDS ORDERED: magnesium 4gm in 100ml NS 100 ML IV PRN (09:15)
[2018-09-02] MEDS ORDERED: mag hydrox/Alum hydrox/simeth 30ml oral suspension PO PRN (09:15)
[2018-09-02] MEDS ORDERED: potassium Cl 20 mEq SR tablet PO PRN (09:15)
[2018-09-02] MEDS ORDERED: ROPINIROLE HCL 0.5 MG PO PRN (09:20)
[2018-09-02] MEDS ORDERED: ferrous gluconate 324mg tablet PO SCH (09:27)
[2018-09-02] MEDS ORDERED: SUMAtriptan 25 MG tablet PO PRN (10:00)
[2018-09-02] MEDS: azithromycin/NS 500mg/250ml 250 ML IV SCH (10:32)
[2018-09-02] MEDS: morphine IR (immed. release) 30mg tablet PO PRN ×4 (10:32→23:30)
[2018-09-02] MEDS: potassium chloride 8mEq ER tablet PO SCH (10:33)
[2018-09-02] MEDS: normal saline 1000ml 1,000 ML IV SCH ×2 (10:33→20:57)
[2018-09-02 10:52] LABS: URINE AMPHETAMINE SCREEN NEGATIVE (Neg); URINE BARBITUATE SCREEN NEGATIVE (Neg); URINE BENZODIAZEPINES SCREEN NEGATIVE (Neg); URINE CANNABINOID SCREEN NEGATIVE (Neg); URINE COCAINE SCREEN NEGATIVE (Neg); URINE METHADONE SCREEN NEGATIVE (Neg); URINE OPIATE SCREEN POSITIVE (Neg); URINE PHENCYCLIDINE SCREEN NEGATIVE (Neg)
[2018-09-02 12:00] VITALS: BP 143/78
[2018-09-02] MEDS: sulfaSALAZINE 500 MG tablet PO SCH ×2 (13:00→20:57)
[2018-09-02] MEDS ORDERED: ROPINIRole 0.25mg tablet PO PRN (13:00)
[2018-09-02] MEDS: cyclobenzaprine 10mg tablet PO SCH ×2 (14:26→21:00)
[2018-09-02 19:30] VITALS: BP 99/58
[2018-09-02] MEDS: hydroxychloroquine 200mg tablet PO SCH (20:00)
[2018-09-02] MEDS: lactobacillus rhamnosus 10,000 MMU CELLS/CAPSULE PO SCH (20:59)
[2018-09-02] MEDS: apixaban 5mg tablet PO SCH (21:01)
[2018-09-02] MEDS: isosorbide dinitrate 30mg tablet PO SCH (21:01)
[2018-09-02] MEDS: pantoprazole 40mg Tablet.DR PO SCH (21:02)
[2018-09-02] MEDS: metoprolol tartrate 50mg tablet PO SCH (21:02)
[2018-09-03] VITALS: BP 112/60
[2018-09-03 04:30] VITALS: BP 99/63
[2018-09-03 06:26] LABS: BASOPHILS % (AUTO) 0.5 % (0-1); EOSINOPHILS # (AUTO) 0.2 X10'3 (0-0.9); EOSINOPHILS % (AUTO) 2.3 % (0-6); HEMATOCRIT 31.7 % (35.0-45.0); HEMOGLOBIN 10.3 g/dl (12.0-16.0); LYMPHOCYTES # (AUTO) 2.8 X10'3 (1.1-4.8); LYMPHOCYTES % (AUTO) 29.7 % (21-51); MEAN CORPUSCULAR HEMOGLOBIN 27.9 PG (27.0-31.0); MEAN CORPUSCULAR HGB CONC 32.3 % (33.0-36.5); MEAN CORPUSCULAR VOLUME 86.3 FL (78-98); MONOCYTES # (AUTO) 0.6 X10'3 (0-0.9); MONOCYTES % (AUTO) 6.2 % (2-12); NEUTROPHILS # (AUTO) 5.8 X10'3 (1.8-7.7); NEUTROPHILS % (AUTO) 61.3 % (42-75); PLATELET COUNT 268 X10'3 (140-440); RED BLOOD COUNT 3.67 X10'6 (4.20-5.60); RED CELL DISTRIBUTION WIDTH 16.2 % (11.5-14.5); WHITE BLOOD COUNT 9.4 X10'3 (4.5-11.0)
[2018-09-03] MEDS: normal saline 1000ml 1,000 ML IV SCH ×3 (06:27→19:12)
[2018-09-03 06:41] LABS: GLUCOSE 112 MG/DL (70-104); SODIUM 140 MMOL/L (135-145)
[2018-09-03 06:42] LABS: ALBUMIN 2.4 G/DL (3.4-5.0); ANION GAP 6 (8-16); BLOOD UREA NITROGEN 6 MG/DL (7-18); BUN/CREATININE RATIO 8.1 (6.6-38.0); CALCIUM 8.7 MG/DL (8.5-10.1); CHLORIDE 103 MMOL/L (99-107); CREATININE 0.74 MG/DL (0.40-0.90); MAGNESIUM 1.8 MG/DL (1.5-2.4); POTASSIUM 3.7 MMOL/L (3.5-5.1); TOTAL CARBON DIOXIDE 30.7 MMOL/L (24-32); eGFR 81 ML/MIN
[2018-09-03 07:03] VITALS: BP 114/69
[2018-09-03] MEDS ORDERED: CefTRIAXone/D5W-Rocephin 1gm 50 ML IV SCH (08:00)
[2018-09-03] MEDS: K and/or MAG REPLACEMENT MC SCH (08:00)
[2018-09-03] MEDS: furosemide 20MG tablet PO SCH (08:02)
[2018-09-03] MEDS: isosorbide dinitrate 30mg tablet PO SCH ×2 (08:03→19:09)
[2018-09-03] MEDS: cyclobenzaprine 10mg tablet PO SCH ×3 (08:03→20:00)
[2018-09-03] MEDS: morphine IR (immed. release) 30mg tablet PO PRN ×3 (08:04→20:01)
[2018-09-03] MEDS: pantoprazole 40mg Tablet.DR PO SCH ×2 (08:05→19:11)
[2018-09-03] MEDS: predniSONE 5mg tablet PO SCH (08:05)
[2018-09-03] MEDS: metoprolol tartrate 50mg tablet PO SCH ×2 (08:05→19:10)
[2018-09-03] MEDS: potassium chloride 8mEq ER tablet PO SCH (08:06)
[2018-09-03] MEDS: ferrous gluconate 324mg tablet PO SCH (08:06)
[2018-09-03] MEDS: apixaban 5mg tablet PO SCH ×2 (08:06→19:09)
[2018-09-03] MEDS: lactobacillus rhamnosus 10,000 MMU CELLS/CAPSULE PO SCH ×2 (08:06→19:09)
[2018-09-03] MEDS: sulfaSALAZINE 500 MG tablet PO SCH ×3 (08:07→20:01)
[2018-09-03] MEDS: hydroxychloroquine 200mg tablet PO SCH ×2 (08:54→19:12)
[2018-09-03] MEDS: azithromycin/NS 500mg/250ml 250 ML IV SCH (08:56)
[2018-09-03] MEDS: MESSAGE TO NURSING PO NR (10:20)
[2018-09-03 11:00] VITALS: BP 98/63
[2018-09-03 12:34] VITALS: BP 109/64
[2018-09-03] MEDS: albuterol 2.5 MG/3 ML nebule NEB PRN ×2 (16:57→22:11)
[2018-09-04] MEDS: morphine IR (immed. release) 30mg tablet PO PRN ×4 (02:07→20:01)
[2018-09-04] MEDS: albuterol 2.5 MG/3 ML nebule NEB PRN ×3 (02:56→20:35)
[2018-09-04 06:48] LABS: BASOPHILS % (AUTO) 0.3 % (0-1); EOSINOPHILS # (AUTO) 0.1 X10'3 (0-0.9); EOSINOPHILS % (AUTO) 0.8 % (0-6); HEMATOCRIT 26.1 % (35.0-45.0); HEMOGLOBIN 8.3 g/dl (12.0-16.0); MEAN CORPUSCULAR HEMOGLOBIN 27.5 PG (27.0-31.0); MEAN CORPUSCULAR HGB CONC 31.8 % (33.0-36.5); MEAN CORPUSCULAR VOLUME 86.4 FL (78-98); MEAN PLATELET VOLUME 8.5 FL (7.4-10.4); MONOCYTES # (AUTO) 0.5 X10'3 (0-0.9); MONOCYTES % (AUTO) 6.6 % (2-12); NEUTROPHILS # (AUTO) 4.4 X10'3 (1.8-7.7); NEUTROPHILS % (AUTO) 63.3 % (42-75); PLATELET COUNT 251 X10'3 (140-440); RED BLOOD COUNT 3.02 X10'6 (4.20-5.60); RED CELL DISTRIBUTION WIDTH 15.9 % (11.5-14.5)
[2018-09-04 07:19] LABS: ALBUMIN 2.2 G/DL (3.4-5.0); ANION GAP 10 (8-16); BLOOD UREA NITROGEN 7 MG/DL (7-18); BUN/CREATININE RATIO 9.5 (6.6-38.0); CALCIUM 8.4 MG/DL (8.5-10.1); CHLORIDE 107 MMOL/L (99-107); CREATININE 0.74 MG/DL (0.40-0.90); GLUCOSE 154 MG/DL (70-104); POTASSIUM 3.1 MMOL/L (3.5-5.1); SODIUM 144 MMOL/L (135-145); TOTAL CARBON DIOXIDE 26.7 MMOL/L (24-32); eGFR 81 ML/MIN
[2018-09-04 08:00] VITALS: BP 117/59
[2018-09-04] MEDS: azithromycin/NS 500mg/250ml 250 ML IV SCH (08:28)
[2018-09-04] MEDS: K and/or MAG REPLACEMENT MC SCH (08:30)
[2018-09-04] MEDS: lactobacillus rhamnosus 10,000 MMU CELLS/CAPSULE PO SCH ×2 (08:32→19:59)
[2018-09-04] MEDS: sulfaSALAZINE 500 MG tablet PO SCH ×3 (08:32→20:17)
[2018-09-04] MEDS: apixaban 5mg tablet PO SCH ×2 (08:33→19:59)
[2018-09-04] MEDS: ferrous gluconate 324mg tablet PO SCH (08:33)
[2018-09-04] MEDS: cyclobenzaprine 10mg tablet PO SCH ×3 (08:34→20:17)
[2018-09-04] MEDS: potassium Cl 20 mEq SR tablet PO PRN ×3 (08:34→21:15)
[2018-09-04] MEDS: isosorbide dinitrate 30mg tablet PO SCH ×2 (08:34→20:00)
[2018-09-04] MEDS: furosemide 20MG tablet PO SCH (08:36)
[2018-09-04] MEDS: potassium chloride 8mEq ER tablet PO SCH (08:36)
[2018-09-04] MEDS: metoprolol tartrate 50mg tablet PO SCH ×2 (08:37→20:00)
[2018-09-04] MEDS: pantoprazole 40mg Tablet.DR PO SCH ×2 (08:38→19:59)
[2018-09-04] MEDS: hydroxychloroquine 200mg tablet PO SCH ×2 (08:38→20:17)
[2018-09-04] MEDS: predniSONE 5mg tablet PO SCH (08:39)
[2018-09-04] MEDS: normal saline 1000ml 1,000 ML IV SCH ×2 (11:12→16:38)
[2018-09-04 18:00] VITALS: BP 139/68
[2018-09-04] MEDS ORDERED: sodium chloride 3% for inhalation 4ml nebule IH ONE (19:00)
[2018-09-05] VITALS: BP 104/65
[2018-09-05] MEDS: morphine IR (immed. release) 30mg tablet PO PRN ×4 (03:23→21:23)
[2018-09-05] MEDS: normal saline 1000ml 1,000 ML IV SCH ×3 (03:24→23:16)
[2018-09-05 04:30] VITALS: BP 123/60
[2018-09-05 05:22] LABS: BASOPHILS % (AUTO) 0.1 % (0-1); EOSINOPHILS % (AUTO) 0.6 % (0-6); HEMATOCRIT 26.7 % (35.0-45.0); HEMOGLOBIN 8.4 g/dl (12.0-16.0); LYMPHOCYTES # (AUTO) 2.4 X10'3 (1.1-4.8); LYMPHOCYTES % (AUTO) 41.1 % (21-51); MEAN CORPUSCULAR HEMOGLOBIN 27.4 PG (27.0-31.0); MEAN CORPUSCULAR HGB CONC 31.5 % (33.0-36.5); MONOCYTES # (AUTO) 0.4 X10'3 (0-0.9); MONOCYTES % (AUTO) 6.1 % (2-12); NEUTROPHILS % (AUTO) 52.1 % (42-75); PLATELET COUNT 292 X10'3 (140-440); RED BLOOD COUNT 3.07 X10'6 (4.20-5.60); RED CELL DISTRIBUTION WIDTH 15.9 % (11.5-14.5); WHITE BLOOD COUNT 5.8 X10'3 (4.5-11.0)
[2018-09-05 05:44] LABS: ALBUMIN 2.3 G/DL (3.4-5.0); ANION GAP 10 (8-16); BLOOD UREA NITROGEN 10 MG/DL (7-18); CALCIUM 8.4 MG/DL (8.5-10.1); CHLORIDE 107 MMOL/L (99-107); CREATININE 0.77 MG/DL (0.40-0.90); GLUCOSE 111 MG/DL (70-104); SODIUM 144 MMOL/L (135-145); TOTAL CARBON DIOXIDE 27.2 MMOL/L (24-32); eGFR 77 ML/MIN
[2018-09-05 07:05] VITALS: BP 116/60
[2018-09-05] MEDS: K and/or MAG REPLACEMENT MC SCH (08:00)
[2018-09-05] MEDS: CefTRIAXone 2gm/D5W 50ml 50 ML IV SCH (08:06)
[2018-09-05] MEDS: isosorbide dinitrate 30mg tablet PO SCH ×2 (08:07→20:47)
[2018-09-05] MEDS: pantoprazole 40mg Tablet.DR PO SCH ×2 (08:07→20:48)
[2018-09-05] MEDS: sulfaSALAZINE 500 MG tablet PO SCH ×3 (08:07→20:48)
[2018-09-05] MEDS: potassium chloride 8mEq ER tablet PO SCH (08:07)
[2018-09-05] MEDS: apixaban 5mg tablet PO SCH ×2 (08:07→20:46)
[2018-09-05] MEDS: predniSONE 5mg tablet PO SCH (08:07)
[2018-09-05] MEDS: hydroxychloroquine 200mg tablet PO SCH ×2 (08:08→20:48)
[2018-09-05] MEDS: metoprolol tartrate 50mg tablet PO SCH ×2 (08:08→20:47)
[2018-09-05] MEDS: cyclobenzaprine 10mg tablet PO SCH ×3 (08:08→20:48)
[2018-09-05] MEDS: lactobacillus rhamnosus 10,000 MMU CELLS/CAPSULE PO SCH ×2 (08:08→20:46)
[2018-09-05] MEDS: furosemide 20MG tablet PO SCH (08:08)
[2018-09-05] MEDS: ferrous gluconate 324mg tablet PO SCH (08:08)
[2018-09-05] MEDS: albuterol 2.5 MG/3 ML nebule NEB PRN ×3 (08:49→20:02)
[2018-09-05] MEDS: azithromycin/NS 500mg/250ml 250 ML IV SCH (09:41)
[2018-09-05 11:43] VITALS: BP 99/52
[2018-09-05 19:00] VITALS: BP 119/57
[2018-09-06 00:30] VITALS: BP 107/46
[2018-09-06] MEDS: morphine IR (immed. release) 30mg tablet PO PRN ×4 (03:52→23:17)
[2018-09-06 06:09] LABS: ALBUMIN 2.3 G/DL (3.4-5.0); ANION GAP 9 (8-16); BLOOD UREA NITROGEN 9 MG/DL (7-18); BUN/CREATININE RATIO 12.5 (6.6-38.0); CALCIUM 8.5 MG/DL (8.5-10.1); CHLORIDE 106 MMOL/L (99-107); CREATININE 0.72 MG/DL (0.40-0.90); GLUCOSE 104 MG/DL (70-104); POTASSIUM 3.9 MMOL/L (3.5-5.1); SODIUM 142 MMOL/L (135-145); eGFR 83 ML/MIN
[2018-09-06 06:53] VITALS: BP 123/71
[2018-09-06] MEDS: metoprolol tartrate 50mg tablet PO SCH ×2 (07:55→21:19)
[2018-09-06] MEDS: K and/or MAG REPLACEMENT MC SCH (08:00)
[2018-09-06 08:02] LABS: BASOPHILS # (AUTO) 0.1 X10'3 (0-0.2); BASOPHILS % (AUTO) 1.1 % (0-1); EOSINOPHILS # (AUTO) 0.1 X10'3 (0-0.9); EOSINOPHILS % (AUTO) 0.9 % (0-6); HEMATOCRIT 27.2 % (35.0-45.0); HEMOGLOBIN 8.6 g/dl (12.0-16.0); LYMPHOCYTES # (AUTO) 2.6 X10'3 (1.1-4.8); MEAN CORPUSCULAR HEMOGLOBIN 27.1 PG (27.0-31.0); MEAN CORPUSCULAR HGB CONC 31.6 % (33.0-36.5); MEAN CORPUSCULAR VOLUME 85.8 FL (78-98); MEAN PLATELET VOLUME 8.1 FL (7.4-10.4); MONOCYTES # (AUTO) 0.4 X10'3 (0-0.9); MONOCYTES % (AUTO) 6.2 % (2-12); NEUTROPHILS # (AUTO) 2.8 X10'3 (1.8-7.7); NEUTROPHILS % (AUTO) 47.8 % (42-75); PLATELET COUNT 261 X10'3 (140-440); RED BLOOD COUNT 3.17 X10'6 (4.20-5.60); RED CELL DISTRIBUTION WIDTH 16.2 % (11.5-14.5)
[2018-09-06] MEDS: predniSONE 5mg tablet PO SCH (08:02)
[2018-09-06] MEDS: azithromycin 250mg tablet PO SCH (08:02)
[2018-09-06] MEDS: CefTRIAXone 2gm/D5W 50ml 50 ML IV SCH (08:02)
[2018-09-06] MEDS: ferrous gluconate 324mg tablet PO SCH (08:02)
[2018-09-06] MEDS: isosorbide dinitrate 30mg tablet PO SCH ×2 (08:02→21:23)
[2018-09-06] MEDS: lactobacillus rhamnosus 10,000 MMU CELLS/CAPSULE PO SCH ×2 (08:03→21:17)
[2018-09-06] MEDS: apixaban 5mg tablet PO SCH ×2 (08:03→21:18)
[2018-09-06] MEDS: furosemide 20MG tablet PO SCH (08:03)
[2018-09-06] MEDS: sulfaSALAZINE 500 MG tablet PO SCH ×3 (08:03→21:18)
[2018-09-06] MEDS: pantoprazole 40mg Tablet.DR PO SCH ×2 (08:03→21:19)
[2018-09-06] MEDS: cyclobenzaprine 10mg tablet PO SCH ×3 (08:03→21:19)
[2018-09-06] MEDS: hydroxychloroquine 200mg tablet PO SCH ×2 (08:03→21:20)
[2018-09-06] MEDS: potassium chloride 8mEq ER tablet PO SCH (08:03)
[2018-09-06] MEDS: normal saline 1000ml 1,000 ML IV SCH ×2 (08:29→18:45)
[2018-09-06 11:40] VITALS: BP 122/60
[2018-09-06 19:00] VITALS: BP 135/54
[2018-09-06] MEDS: albuterol 2.5 MG/3 ML nebule NEB PRN (19:27)
[2018-09-06 23:00] VITALS: BP 109/61
[2018-09-07] MEDS: morphine IR (immed. release) 30mg tablet PO PRN ×4 (05:00→21:48)
[2018-09-07] MEDS: normal saline 1000ml 1,000 ML IV SCH ×2 (05:01→16:50)
[2018-09-07 06:29] LABS: BASOPHILS # (AUTO) 0.1 X10'3 (0-0.2); BASOPHILS % (AUTO) 0.7 % (0-1); EOSINOPHILS # (AUTO) 0.1 X10'3 (0-0.9); EOSINOPHILS % (AUTO) 1.2 % (0-6); HEMATOCRIT 28.4 % (35.0-45.0); LYMPHOCYTES # (AUTO) 2.7 X10'3 (1.1-4.8); LYMPHOCYTES % (AUTO) 35.8 % (21-51); MEAN CORPUSCULAR HEMOGLOBIN 27.2 PG (27.0-31.0); MEAN CORPUSCULAR HGB CONC 31.7 % (33.0-36.5); MEAN CORPUSCULAR VOLUME 85.8 FL (78-98); MEAN PLATELET VOLUME 7.6 FL (7.4-10.4); MONOCYTES # (AUTO) 0.5 X10'3 (0-0.9); MONOCYTES % (AUTO) 6.3 % (2-12); NEUTROPHILS # (AUTO) 4.2 X10'3 (1.8-7.7); PLATELET COUNT 327 X10'3 (140-440); RED BLOOD COUNT 3.31 X10'6 (4.20-5.60); RED CELL DISTRIBUTION WIDTH 16.3 % (11.5-14.5); WHITE BLOOD COUNT 7.5 X10'3 (4.5-11.0)
[2018-09-07 06:58] LABS: ALBUMIN 2.4 G/DL (3.4-5.0); ANION GAP 8 (8-16); BLOOD UREA NITROGEN 10 MG/DL (7-18); BUN/CREATININE RATIO 12.5 (6.6-38.0); CALCIUM 8.6 MG/DL (8.5-10.1); CHLORIDE 105 MMOL/L (99-107); GLUCOSE 102 MG/DL (70-104); MAGNESIUM 1.9 MG/DL (1.5-2.4); POTASSIUM 3.5 MMOL/L (3.5-5.1); SODIUM 142 MMOL/L (135-145); TOTAL CARBON DIOXIDE 28.8 MMOL/L (24-32); eGFR 74 ML/MIN
[2018-09-07 07:00] VITALS: BP 119/50
[2018-09-07] MEDS: metoprolol tartrate 50mg tablet PO SCH ×2 (08:00→21:40)
[2018-09-07] MEDS: K and/or MAG REPLACEMENT MC SCH (08:00)
[2018-09-07 11:00] VITALS: BP 107/56
[2018-09-07] MEDS: azithromycin 250mg tablet PO SCH (11:04)
[2018-09-07] MEDS: hydroxychloroquine 200mg tablet PO SCH ×2 (11:05→21:41)
[2018-09-07] MEDS: sulfaSALAZINE 500 MG tablet PO SCH ×3 (11:05→21:40)
[2018-09-07] MEDS: cyclobenzaprine 10mg tablet PO SCH ×3 (11:05→21:42)
[2018-09-07] MEDS: ferrous gluconate 324mg tablet PO SCH (11:05)
[2018-09-07] MEDS: CefTRIAXone 2gm/D5W 50ml 50 ML IV SCH (11:05)
[2018-09-07] MEDS: lactobacillus rhamnosus 10,000 MMU CELLS/CAPSULE PO SCH ×2 (11:05→21:41)
[2018-09-07] MEDS: isosorbide dinitrate 30mg tablet PO SCH ×2 (11:05→21:41)
[2018-09-07] MEDS: furosemide 20MG tablet PO SCH (11:06)
[2018-09-07] MEDS: apixaban 5mg tablet PO SCH ×2 (11:06→21:41)
[2018-09-07] MEDS: pantoprazole 40mg Tablet.DR PO SCH ×2 (11:06→21:41)
[2018-09-07] MEDS: potassium chloride 8mEq ER tablet PO SCH (11:06)
[2018-09-07 19:10] VITALS: BP 111/68
[2018-09-07] MEDS: albuterol 2.5 MG/3 ML nebule NEB PRN (19:10)
[2018-09-07] MEDS: ciprofloxacin 250mg tablet PO SCH (21:45)
[2018-09-08] VITALS: BP 93/55
[2018-09-08] MEDS: normal saline 1000ml 1,000 ML IV SCH (02:10)
[2018-09-08] MEDS: morphine IR (immed. release) 30mg tablet PO PRN ×3 (05:46→18:48)
[2018-09-08 07:06] VITALS: BP 115/60
[2018-09-08] MEDS: K and/or MAG REPLACEMENT MC SCH (08:00)
[2018-09-08] MEDS: cyclobenzaprine 10mg tablet PO SCH ×3 (08:41→21:21)
[2018-09-08] MEDS: hydroxychloroquine 200mg tablet PO SCH ×2 (08:41→19:36)
[2018-09-08] MEDS: ferrous gluconate 324mg tablet PO SCH (08:41)
[2018-09-08] MEDS: predniSONE 20 mg tablet PO SCH (08:41)
[2018-09-08] MEDS: isosorbide dinitrate 30mg tablet PO SCH ×2 (08:41→19:34)
[2018-09-08] MEDS: apixaban 5mg tablet PO SCH ×2 (08:41→19:34)
[2018-09-08] MEDS: sulfaSALAZINE 500 MG tablet PO SCH ×3 (08:41→21:21)
[2018-09-08] MEDS: lactobacillus rhamnosus 10,000 MMU CELLS/CAPSULE PO SCH ×2 (08:42→19:34)
[2018-09-08] MEDS: pantoprazole 40mg Tablet.DR PO SCH ×2 (08:42→19:35)
[2018-09-08] MEDS: potassium chloride 8mEq ER tablet PO SCH (08:42)
[2018-09-08] MEDS: furosemide 20MG tablet PO SCH (08:42)
[2018-09-08] MEDS: metoprolol tartrate 50mg tablet PO SCH ×2 (08:42→20:00)
[2018-09-08] MEDS: ciprofloxacin 250mg tablet PO SCH ×2 (10:20→21:22)
[2018-09-08 11:14] VITALS: BP 97/53
[2018-09-08 19:10] VITALS: BP 99/55
[2018-09-09] VITALS: BP 99/58
[2018-09-09] MEDS: morphine IR (immed. release) 30mg tablet PO PRN ×2 (01:01→08:50)
[2018-09-09 07:00] VITALS: BP 90/50
[2018-09-09] MEDS: K and/or MAG REPLACEMENT MC SCH (08:00)
[2018-09-09] MEDS: furosemide 20MG tablet PO SCH (08:00)
[2018-09-09] MEDS: metoprolol tartrate 50mg tablet PO SCH (08:00)
[2018-09-09] MEDS: sulfaSALAZINE 500 MG tablet PO SCH ×2 (08:41→12:34)
[2018-09-09] MEDS: isosorbide dinitrate 30mg tablet PO SCH (08:41)
[2018-09-09] MEDS: pantoprazole 40mg Tablet.DR PO SCH (08:42)
[2018-09-09] MEDS: predniSONE 20 mg tablet PO SCH (08:42)
[2018-09-09] MEDS: potassium chloride 8mEq ER tablet PO SCH (08:42)
[2018-09-09] MEDS: ferrous gluconate 324mg tablet PO SCH (08:48)
[2018-09-09] MEDS: cyclobenzaprine 10mg tablet PO SCH ×2 (08:48→12:34)
[2018-09-09] MEDS: apixaban 5mg tablet PO SCH (08:48)
[2018-09-09] MEDS: lactobacillus rhamnosus 10,000 MMU CELLS/CAPSULE PO SCH (08:50)
[2018-09-09] MEDS: hydroxychloroquine 200mg tablet PO SCH (08:52)
[2018-09-09] MEDS: ciprofloxacin 250mg tablet PO SCH (10:27)
[2018-09-09 11:41] VITALS: BP 91/57
[2018-09-09] MEDS ORDERED: PRED5TAB PO (11:50)
[2018-09-09] MEDS ORDERED: CIPR250T4 PO (11:50)
[2018-09-09] MEDS ORDERED: ALBU8.5H8 IH (11:50)
[2018-09-09] MEDS ORDERED: BUDE10.22 INH (11:50)
== END 2018-09-09 13:16 | disposition home health service (06) | DRG 391 ==
LOC: ER 06:15 → ED HOLD 08:38 → SUR 3N 11:58
PROVIDERS: ADMIT Internal Medicine; ATTEND Family Medicine
PROC: B32T1ZZ Computerized Tomography (CT Scan) of Left Pulmonary Artery using Low Osmolar Contrast (ICD-10-PCS; principal; 2018-09-02)
PROC: B3201ZZ Computerized Tomography (CT Scan) of Thoracic Aorta using Low Osmolar Contrast (ICD-10-PCS; 2018-09-02)
PROC: B32S1ZZ Computerized Tomography (CT Scan) of Right Pulmonary Artery using Low Osmolar Contrast (ICD-10-PCS; 2018-09-02)
DX: K21.9 Gastro-esophageal reflux disease without esophagitis (principal); J18.1 Lobar pneumonia, unspecified organism; J44.0 Chronic obstructive pulmonary disease with (acute) lower respiratory infection; J96.11 Chronic respiratory failure with hypoxia; R65.10 Systemic inflammatory response syndrome (SIRS) of non-infectious origin without acute organ dysfunction; J44.1 Chronic obstructive pulmonary disease with (acute) exacerbation; I50.9 Heart failure, unspecified; D64.9 Anemia, unspecified; E11.9 Type 2 diabetes mellitus without complications; E78.00 Pure hypercholesterolemia, unspecified; E78.5 Hyperlipidemia, unspecified; G47.30 Sleep apnea, unspecified; I25.10 Atherosclerotic heart disease of native coronary artery without angina pectoris; M19.90 Unspecified osteoarthritis, unspecified site; E87.6 Hypokalemia; B96.5 Pseudomonas (aeruginosa) (mallei) (pseudomallei) as the cause of diseases classified elsewhere; G89.29 Other chronic pain; N28.9 Disorder of kidney and ureter, unspecified; M06.9 Rheumatoid arthritis, unspecified; I25.2 Old myocardial infarction; Z90.49 Acquired absence of other specified parts of digestive tract; Z99.81 Dependence on supplemental oxygen; Z88.8 Allergy status to other drugs, medicaments and biological substances; Z79.899 Other long term (current) drug therapy; Z79.01 Long term (current) use of anticoagulants; Z79.52 Long term (current) use of systemic steroids; Z86.711 Personal history of pulmonary embolism; Z86.73 Personal history of transient ischemic attack (TIA), and cerebral infarction without residual deficits; Z82.3 Family history of stroke; Z82.49 Family history of ischemic heart disease and other diseases of the circulatory system; Z82.5 Family history of asthma and other chronic lower respiratory diseases; Z83.3 Family history of diabetes mellitus
CPT/HCPCS: 36415; 71045; 71275; 80048; 80053; 80305; 81001; 83605; 83735; 84145; 84484; 85025; 85610; 85730; 87040; 87070; 87077; 87186; 93005; 94640; 94760; 96360; 99285; A4218; G0378; J0456; J0696; J7030; J7512; Q9967

== ENCOUNTER 2018-12-03 21:20 | Emergency (ER) | payer MEDICARE, MEDICAID ==
[~2018-12-03] VITALS: Ht 160 cm; Wt 136.4 kg
[~2018-12-03 21:20] MED LIST changes: +ALBU8.5H8 IH; -ALEN70TA48 PO; +CIPR250T4 PO; +ISOS30TA9 PO; -PRED10TA PO; +PRED5TAB PO; -TRAM50TA2 PO
[2018-12-03 22:17] LABS: BASOPHILS % (AUTO) 0.3 % (0-1); EOSINOPHILS # (AUTO) 0.1 X10'3 (0-0.9); EOSINOPHILS % (AUTO) 0.9 % (0-6); HEMATOCRIT 37.4 % (35.0-45.0); HEMOGLOBIN 11.9 g/dl (12.0-16.0); LYMPHOCYTES # (AUTO) 3.3 X10'3 (1.1-4.8); LYMPHOCYTES % (AUTO) 22.4 % (21-51); MEAN CORPUSCULAR HEMOGLOBIN 26.5 PG (27.0-31.0); MEAN CORPUSCULAR HGB CONC 31.7 g/dL (33.0-36.5); MEAN CORPUSCULAR VOLUME 83.5 FL (78-98); MEAN PLATELET VOLUME 8.2 FL (7.4-10.4); MONOCYTES # (AUTO) 1.1 X10'3 (0-0.9); MONOCYTES % (AUTO) 7.4 % (2-12); NEUTROPHILS # (AUTO) 10.1 X10'3 (1.8-7.7); PLATELET COUNT 341 X10'3 (140-440); RED BLOOD COUNT 4.48 X10'6 (4.20-5.60); WHITE BLOOD COUNT 14.6 X10'3 (4.5-11.0)
[2018-12-03 22:22] LABS: ALANINE AMINOTRANSFERASE 13 U/L (12-78); ALBUMIN 3.1 G/DL (3.4-5.0); ALBUMIN/GLOBULIN RATIO 0.7 (1.1-1.5); ALKALINE PHOSPHATASE 84 IU/L (46-116); ANION GAP 9 (8-16); ASPARTATE AMINO TRANSFERASE 11 U/L (10-37); BILIRUBIN,TOTAL 0.3 MG/DL (0.1-1.0); BLOOD UREA NITROGEN 13 MG/DL (7-18); BUN/CREATININE RATIO 17.8 (6.6-38.0); CALCIUM 9.1 MG/DL (8.5-10.1); CHLORIDE 100 MMOL/L (99-107); CREATININE 0.73 MG/DL (0.40-0.90); GLUCOSE 138 MG/DL (70-104); POTASSIUM 3.5 MMOL/L (3.5-5.1); SODIUM 138 MMOL/L (135-145); TOTAL CARBON DIOXIDE 28.6 MMOL/L (24-32); TOTAL PROTEIN 7.3 G/DL (6.4-8.2); eGFR 82 ML/MIN
[2018-12-03 22:26] LABS: PROTHROMBIN TIME 10.2 SECONDS (9.0-12.0)
[2018-12-03 22:27] LABS: PARTIAL THROMBOPLASTIN TIME 28 SECONDS (22-32)
--- NOTE | 2018-12-04 00:29 | NUR ---
SON AT BEDSIDE. PT WEARS O2 AAT 4L. SHE HAS BEEN VOIMITING THE PAST DAY AND HAS BEEN UNABLE TO KEEP DOWN HER MEDICATIONS. HER EMESIS IS WATERY BILE WITH THICH CREAMY MUCUS AND SOME TINY FLECKS OF BLOOD. SHE IS IN A LOT OF PAIN SHE HAS NOT BEEN ABLE TO HOLD DOWN EVEN HER PAIN MEDS (MORPHINE WHICH SHE TAKES 5 TIMES A DAY). PT REPROTS CHRONIC BILATERAL SHOUDER AND KNEE PAIN FROM PAST SURGERIES AND BACK PAIN , BUT IS HAVING "ALL OF MY BACK" PAIN AND UPPER ABDOMINAL PAIN. CURRENT VSS.
[2018-12-04] MEDS ORDERED: morphine 4 MG/ML inj SYRINge IV ONE ×2 (00:35→02:00)
[2018-12-04] MEDS ORDERED: ondansetron/PF 4mg/2ml inj IV ONE (00:35)
[2018-12-04] MEDS ORDERED: proCHLORperazine 10 MG/2 ml inj IV ONE (00:40)
[2018-12-04 01:09] LABS: TROPONIN I < 0.04 NG/ML (0.0-0.05)
[2018-12-04] MEDS ORDERED: morphine IR (immed. release) 30mg tablet PO ONE (02:00)
[2018-12-04] MEDS ORDERED: LORazepam 2 mg/ml vial IV ONE (02:00)
[2018-12-04] MEDS ORDERED: normal saline 1000ml 1,000 ML IV ONE ×2 (02:00→03:05)
--- NOTE | 2018-12-04 02:08 | NUR ---
DR HICKMAN AT BEDSIDE FOR REEVAL, PT REPORTS NO RELIEF OF HER PAIN FROM THE MSIV RECEIVED 50 MIN AGO AND SOME RELIEF FROM NAUSEA. TO ORDER ADTL MEDS AND THE REQUEST A PO CHALLENGE.
[2018-12-04] MEDS ORDERED: metoclopramide 5 mg/ml inj IV ONE (02:35)
--- NOTE | 2018-12-04 02:57 | NUR ---
IV INFILTRATED. NEW PIV IN PLACE 1VF CONTINUES AND PT GIVEN REGLAN. SON REMAINS AT BEDSIDE
[2018-12-04] MEDS ORDERED: pantoprazole 40 MG vial IV ONE (03:05)
--- NOTE | 2018-12-04 03:43 | NUR ---
PT REQUESTED TO TRY AN GET UP TO VOID AND SHE REPROTS SHE CANNOT . ALSO REFUSING STRAIGHT CATH. DR. HICKMAN UPDATED. 2ND LITER STARTED. FAMILY AT BEDSIDE.
[2018-12-04 03:56] VITALS: BP 131/84
[2018-12-04] MEDS ORDERED: PHE25R PR (03:56)
[2018-12-04] MEDS ORDERED: ONDA8TAB6 PO (03:56)
--- NOTE | 2018-12-04 03:58 | NUR ---
PT REPORTS NO FURTHER NAUSEA AND MINIMAL PAIN TO HER ABDOMEN. SHE IS HAVING BACK PAIN C/T THE GURNEY. SHE REPORTS SHE FEELS OK TO BE D/C'D AND WOULD LIKE TO GO HOME. PT'S DAUGHTER IN LAW/CAREGIVER AT BEDSIDE. PT WITH STABLE VS. DR HICKMAN UPDATED AND WILL DC PT.
== END 2018-12-04 04:42 | disposition home or self-care (01) ==
LOC: ER 21:21
DX: K29.60 Other gastritis without bleeding (principal); R11.2 Nausea with vomiting, unspecified; R10.84 Generalized abdominal pain; R60.0 Localized edema; I25.10 Atherosclerotic heart disease of native coronary artery without angina pectoris; I50.9 Heart failure, unspecified; E78.00 Pure hypercholesterolemia, unspecified; I25.2 Old myocardial infarction; J44.9 Chronic obstructive pulmonary disease, unspecified; K21.9 Gastro-esophageal reflux disease without esophagitis; E11.9 Type 2 diabetes mellitus without complications; M19.90 Unspecified osteoarthritis, unspecified site; G89.29 Other chronic pain; M06.9 Rheumatoid arthritis, unspecified; Z90.49 Acquired absence of other specified parts of digestive tract; Z98.890 Other specified postprocedural states; Z86.711 Personal history of pulmonary embolism; Z88.8 Allergy status to other drugs, medicaments and biological substances; Z88.5 Allergy status to narcotic agent; Z79.899 Other long term (current) drug therapy; Z87.01 Personal history of pneumonia (recurrent)
CPT/HCPCS: 36415; 71045; 80053; 83605; 83880; 84145; 84484; 85025; 85610; 85730; 87040; 96361; 96374; 96375; 96376; 99284; C9113; J0780; J2060; J2270; J2405; J2765; J7030

== ENCOUNTER 2019-06-25 19:10 | Emergency (ER) | payer MEDICARE, MEDICAID ==
[~2019-06-25] VITALS: Ht 160 cm; Wt 136.4 kg
[~2019-06-25 19:10] MED LIST changes: +ONDA8TAB6 PO; +PHE25R PR; +POTA8CAP20 PO; -POTA8CAP9 PO
[2019-06-25 20:24] LABS: PARTIAL THROMBOPLASTIN TIME 28 SECONDS (22-32)
[2019-06-25 20:26] LABS: ALANINE AMINOTRANSFERASE 12 U/L (12-78); ALBUMIN 3.2 G/DL (3.4-5.0); ALBUMIN/GLOBULIN RATIO 0.8 (1.1-1.5); ALKALINE PHOSPHATASE 92 IU/L (46-116); ANION GAP 8 (8-16); ASPARTATE AMINO TRANSFERASE 9 U/L (10-37); BILIRUBIN,TOTAL 0.2 MG/DL (0.1-1.0); BLOOD UREA NITROGEN 12 MG/DL (7-18); BUN/CREATININE RATIO 13.3 (6.6-38.0); CHLORIDE 101 MMOL/L (99-107); GLUCOSE 145 MG/DL (70-104); POTASSIUM 4.4 MMOL/L (3.5-5.1); SODIUM 138 MMOL/L (135-145); TOTAL CARBON DIOXIDE 28.7 MMOL/L (24-32); TOTAL PROTEIN 7.3 G/DL (6.4-8.2); eGFR 64 ML/MIN
[2019-06-25 20:37] LABS: BASOPHILS % (AUTO) 0.3 % (0-1); EOSINOPHILS # (AUTO) 0.2 X10'3 (0-0.9); EOSINOPHILS % (AUTO) 1.3 % (0-6); HEMATOCRIT 34.1 % (35.0-45.0); HEMOGLOBIN 10.9 g/dl (12.0-16.0); LYMPHOCYTES # (AUTO) 3.2 X10'3 (1.1-4.8); LYMPHOCYTES % (AUTO) 24.1 % (21-51); MEAN CORPUSCULAR HEMOGLOBIN 27.4 PG (27.0-31.0); MEAN CORPUSCULAR VOLUME 85.6 FL (78-98); MEAN PLATELET VOLUME 8.4 FL (7.4-10.4); MONOCYTES # (AUTO) 0.7 X10'3 (0-0.9); MONOCYTES % (AUTO) 5.5 % (2-12); NEUTROPHILS # (AUTO) 9.1 X10'3 (1.8-7.7); NEUTROPHILS % (AUTO) 68.8 % (42-75); PLATELET COUNT 377 X10'3 (140-440); RED BLOOD COUNT 3.98 X10'6 (4.20-5.60); RED CELL DISTRIBUTION WIDTH 17.3 % (11.5-14.5); WHITE BLOOD COUNT 13.2 X10'3 (4.5-11.0)
--- NOTE | 2019-06-25 20:47 | NUR ---
CHANDRAKANT ALLISON OKAYED PT FOR WATER. WATER GIVEN ON PT REQUEST
[2019-06-25 22:44] VITALS: BP 101/63
== END 2019-06-25 22:46 | disposition home or self-care (01) ==
LOC: ER 19:13
DX: R07.89 Other chest pain (principal); E66.01 Morbid (severe) obesity due to excess calories; I25.10 Atherosclerotic heart disease of native coronary artery without angina pectoris; I11.0 Hypertensive heart disease with heart failure; I50.9 Heart failure, unspecified; E78.00 Pure hypercholesterolemia, unspecified; I25.2 Old myocardial infarction; J44.9 Chronic obstructive pulmonary disease, unspecified; G47.30 Sleep apnea, unspecified; K21.9 Gastro-esophageal reflux disease without esophagitis; E11.9 Type 2 diabetes mellitus without complications; M19.90 Unspecified osteoarthritis, unspecified site; G89.29 Other chronic pain; M06.9 Rheumatoid arthritis, unspecified; Z90.49 Acquired absence of other specified parts of digestive tract; Z98.890 Other specified postprocedural states; Z86.711 Personal history of pulmonary embolism; Z86.73 Personal history of transient ischemic attack (TIA), and cerebral infarction without residual deficits; Z88.8 Allergy status to other drugs, medicaments and biological substances; Z88.6 Allergy status to analgesic agent; Z79.2 Long term (current) use of antibiotics; Z79.899 Other long term (current) drug therapy
CPT/HCPCS: 36415; 71045; 80053; 84484; 85025; 85610; 85730; 93005; 99284

== ENCOUNTER 2019-08-19 15:46 | Emergency (ER) | payer MEDICARE, MEDICAID ==
[~2019-08-19] VITALS: Ht 160 cm; Wt 150.9 kg
[2019-08-19 16:16] LABS: BASOPHILS % (AUTO) 0.4 % (0-1); EOSINOPHILS # (AUTO) 0.2 X10'3 (0-0.9); HEMATOCRIT 36.1 % (35.0-45.0); HEMOGLOBIN 11.7 g/dl (12.0-16.0); LYMPHOCYTES # (AUTO) 3.2 X10'3 (1.1-4.8); LYMPHOCYTES % (AUTO) 30.5 % (21-51); MEAN CORPUSCULAR HGB CONC 32.3 g/dL (33.0-36.5); MEAN CORPUSCULAR VOLUME 86.7 FL (78-98); MONOCYTES # (AUTO) 0.8 X10'3 (0-0.9); MONOCYTES % (AUTO) 7.4 % (2-12); NEUTROPHILS # (AUTO) 6.2 X10'3 (1.8-7.7); NEUTROPHILS % (AUTO) 59.7 % (42-75); PLATELET COUNT 319 X10'3 (140-440); RED BLOOD COUNT 4.17 X10'6 (4.20-5.60); RED CELL DISTRIBUTION WIDTH 17.1 % (11.5-14.5); WHITE BLOOD COUNT 10.4 X10'3 (4.5-11.0)
[2019-08-19 16:37] LABS: ALANINE AMINOTRANSFERASE 14 U/L (12-78); ALBUMIN 3.5 G/DL (3.4-5.0); ALBUMIN/GLOBULIN RATIO 0.9 (1.1-1.5); ALKALINE PHOSPHATASE 97 IU/L (46-116); ANION GAP 11 (8-16); ASPARTATE AMINO TRANSFERASE 17 U/L (10-37); BILIRUBIN,TOTAL 0.2 MG/DL (0.1-1.0); BLOOD UREA NITROGEN 8 MG/DL (7-18); BUN/CREATININE RATIO 10.8 (6.6-38.0); CALCIUM 9.6 MG/DL (8.5-10.1); CHLORIDE 102 MMOL/L (99-107); CREATININE 0.74 MG/DL (0.40-0.90); GLUCOSE 134 MG/DL (70-104); POTASSIUM 4.1 MMOL/L (3.5-5.1); SODIUM 141 MMOL/L (135-145); TOTAL CARBON DIOXIDE 27.9 MMOL/L (24-32); TOTAL PROTEIN 7.3 G/DL (6.4-8.2); eGFR 81 ML/MIN
[2019-08-19] MEDS ORDERED: diltiazem 5mg/ml 5ml inj. IV ONE ×2 (16:50→17:15)
--- NOTE | 2019-08-19 17:11 | NUR ---
pt reports 3/10 cp at this time, advised provider.
[2019-08-19] MEDS ORDERED: ondansetron/PF 4mg/2ml inj IV ONE (17:15)
[2019-08-19] MEDS ORDERED: morphine 4 MG/ML inj SYRINge IV ONE (17:15)
[2019-08-19] MEDS ORDERED: adenosine 3mg/ml 2ml vial IV ONE ×3 (18:00→18:35)
[2019-08-19] MEDS ORDERED: etomidate 2mg/ml inj. IV ONE (18:30)
[2019-08-19] MEDS ORDERED: fentaNYL/PF 50MCG/1 ML 2ML syringe IV ONE (18:30)
[2019-08-19] MEDS ORDERED: metoprolol tartrate 1mg/ml inj IV ONE (19:00)
[2019-08-19] MEDS ORDERED: metoprolol succinate 25mg (24-HOUR) SR. Tablet PO ONE (19:05)
[2019-08-19 20:01] VITALS: BP 121/78
== END 2019-08-19 19:50 | disposition home or self-care (01) ==
LOC: ER 15:47
DX: I48.92 Unspecified atrial flutter (principal); R00.0 Tachycardia, unspecified; I25.10 Atherosclerotic heart disease of native coronary artery without angina pectoris; E78.00 Pure hypercholesterolemia, unspecified; I25.2 Old myocardial infarction; J44.9 Chronic obstructive pulmonary disease, unspecified; K21.9 Gastro-esophageal reflux disease without esophagitis; E11.9 Type 2 diabetes mellitus without complications; M19.90 Unspecified osteoarthritis, unspecified site; G89.29 Other chronic pain; M06.9 Rheumatoid arthritis, unspecified; I50.9 Heart failure, unspecified; Z90.49 Acquired absence of other specified parts of digestive tract; Z98.890 Other specified postprocedural states; Z88.6 Allergy status to analgesic agent; Z88.1 Allergy status to other antibiotic agents; Z79.899 Other long term (current) drug therapy
CPT/HCPCS: 36415; 71045; 80053; 84484; 85025; 92960; 93005; 96374; 96375; 96376; 99152; 99153; 99285; J0153; J2270; J2405; J3010; J3490

== ENCOUNTER 2019-11-02 12:22 | Emergency (ER) | payer MEDICARE, MEDICAID ==
[~2019-11-02] VITALS: Ht 157.5 cm; Wt 140.0 kg
[~2019-11-02 12:22] MED LIST changes: -ROPI0.5T2 PO; +ROPI0.5T4 PO
[2019-11-02 13:25] LABS: BASOPHILS # (AUTO) 0.1 X10'3 (0-0.2); BASOPHILS % (AUTO) 0.4 % (0-1); EOSINOPHILS # (AUTO) 0.1 X10'3 (0-0.9); EOSINOPHILS % (AUTO) 0.6 % (0-6); HEMOGLOBIN 10.7 g/dl (12.0-16.0); LYMPHOCYTES # (AUTO) 2.2 X10'3 (1.1-4.8); LYMPHOCYTES % (AUTO) 12.1 % (21-51); MEAN CORPUSCULAR HEMOGLOBIN 25.9 PG (27.0-31.0); MEAN CORPUSCULAR HGB CONC 31.5 g/dL (33.0-36.5); MEAN CORPUSCULAR VOLUME 82.2 FL (78-98); MEAN PLATELET VOLUME 8.1 FL (7.4-10.4); MONOCYTES % (AUTO) 5.3 % (2-12); NEUTROPHILS # (AUTO) 14.9 X10'3 (1.8-7.7); NEUTROPHILS % (AUTO) 81.6 % (42-75); PLATELET COUNT 446 X10'3 (140-440); RED BLOOD COUNT 4.13 X10'6 (4.20-5.60); WHITE BLOOD COUNT 18.2 X10'3 (4.5-11.0)
[2019-11-02 13:32] LABS: ALANINE AMINOTRANSFERASE 36 U/L (12-78); ALBUMIN 3.2 G/DL (3.4-5.0); ALBUMIN/GLOBULIN RATIO 0.9 (1.1-1.5); ALKALINE PHOSPHATASE 71 IU/L (46-116); ANION GAP 7 (8-16); ASPARTATE AMINO TRANSFERASE 30 U/L (10-37); BILIRUBIN,TOTAL 0.2 MG/DL (0.1-1.0); BLOOD UREA NITROGEN 20 MG/DL (7-18); BUN/CREATININE RATIO 20.2 (6.6-38.0); CALCIUM 9.2 MG/DL (8.5-10.1); CHLORIDE 103 MMOL/L (99-107); CREATININE 0.99 MG/DL (0.40-0.90); GLUCOSE 183 MG/DL (70-104); LIPASE 93 U/L (73-393); POTASSIUM 4.3 MMOL/L (3.5-5.1); SODIUM 142 MMOL/L (135-145); TOTAL CARBON DIOXIDE 31.8 MMOL/L (24-32); TOTAL PROTEIN 6.7 G/DL (6.4-8.2); eGFR 57 ML/MIN
[2019-11-02 14:15] VITALS: BP 156/95
[2019-11-02 14:15] LABS: CLARITY,URINE SLIGHTLY CLOUDY (Clear); COLOR,URINE STRAW (Yellow); GLUCOSE, URINE NEGATIVE (Neg); KETONES,URINE NEGATIVE (Neg); LEUKOCYTE ESTERASE ,URINE SMALL (Neg); NITRITES, URINE NEGATIVE (Neg); OCCULT BLOOD,URINE SMALL (Neg); PH,URINE 5.5 (4.8-8.0); PROTEIN,URINE NEGATIVE (Neg); UROBILINOGEN,URINE 0.2 E.U/dL (0.2-1.0)
[2019-11-02 14:16] LABS: UA COLLECTION TYPE CLN CATCH MIDSTREAM
[2019-11-02 14:25] LABS: BACTERIA,URINE 1+ /HPF (Neg); WBC,URINE 0-4 /HPF (0-4)
[2019-11-02 14:26] LABS: SQUAMOUS EPITHELIAL CELL,UR MODERATE /LPF (FEW)
[2019-11-02 17:46] LABS: ANISOCYTOSIS 1+; PLATELET ESTIMATE INCREASED; TOTAL CELLS COUNTED 100
== END 2019-11-02 14:17 | disposition home or self-care (01) ==
LOC: ER 12:22
DX: S30.1XXA Contusion of abdominal wall, initial encounter (principal); J98.11 Atelectasis; I25.10 Atherosclerotic heart disease of native coronary artery without angina pectoris; I50.9 Heart failure, unspecified; E78.00 Pure hypercholesterolemia, unspecified; I25.2 Old myocardial infarction; J44.9 Chronic obstructive pulmonary disease, unspecified; K21.9 Gastro-esophageal reflux disease without esophagitis; G47.30 Sleep apnea, unspecified; Z90.49 Acquired absence of other specified parts of digestive tract; Z98.890 Other specified postprocedural states; Z86.711 Personal history of pulmonary embolism; Z88.8 Allergy status to other drugs, medicaments and biological substances; Z79.899 Other long term (current) drug therapy; X58.XXXA Exposure to other specified factors, initial encounter; Y93.89 Activity, other specified; Y92.89 Other specified places as the place of occurrence of the external cause; Y99.8 Other external cause status
CPT/HCPCS: 36415; 74176; 80053; 81001; 83690; 85025; 85610; 87088; 99284

== ENCOUNTER 2020-03-02 21:40 | Emergency (ER) | payer MEDICARE, MEDICAID ==
[~2020-03-02] VITALS: Ht 157.5 cm; Wt 159.1 kg
[~2020-03-02 21:40] MED LIST changes: +ASPI-1265 PO; +ATOR20TA66 PO; -CIPR250T4 PO; +LACT1CAP26 PO; +METF-950 PO; -ONDA8TAB6 PO; -PHE25R PR; +RANO500T3 PO; +TIOT4MIS3
[2020-03-02] MEDS ORDERED: aspirin 81mg tab.chew PO ONE (21:55)
[2020-03-02] MEDS ORDERED: magnesium 2GM in 50ml NS 50 ML IV ONE (22:00)
[2020-03-02] MEDS ORDERED: normal saline 1000ml 1,000 ML IV ONE (22:00)
[2020-03-02] MEDS ORDERED: adenosine 3mg/ml 2ml vial IV ONE (22:05)
[2020-03-02] MEDS ORDERED: LORazepam 2 mg/ml vial IV ONE (22:05)
[2020-03-02] MEDS ORDERED: ondansetron/PF 4mg/2ml inj IV ONE (22:10)
[2020-03-02 22:12] LABS: BASOPHILS # (AUTO) 0.1 X10'3 (0-0.2); BASOPHILS % (AUTO) 0.4 % (0-1); EOSINOPHILS # (AUTO) 0.1 X10'3 (0-0.9); EOSINOPHILS % (AUTO) 0.8 % (0-6); HEMOGLOBIN 11.8 g/dl (12.0-16.0); LYMPHOCYTES % (AUTO) 28.7 % (21-51); MEAN CORPUSCULAR HEMOGLOBIN 25.8 PG (27.0-31.0); MEAN CORPUSCULAR HGB CONC 31.1 g/dL (33.0-36.5); MEAN CORPUSCULAR VOLUME 82.9 FL (78-98); MEAN PLATELET VOLUME 8.7 FL (7.4-10.4); MONOCYTES # (AUTO) 1.2 X10'3 (0-0.9); MONOCYTES % (AUTO) 6.7 % (2-12); NEUTROPHILS % (AUTO) 63.4 % (42-75); PLATELET COUNT 351 X10'3 (140-440); RED BLOOD COUNT 4.58 X10'6 (4.20-5.60); RED CELL DISTRIBUTION WIDTH 18.8 % (11.5-14.5); WHITE BLOOD COUNT 17.3 X10'3 (4.5-11.0)
[2020-03-02 22:22] LABS: ANION GAP 10 (8-16); BLOOD UREA NITROGEN 9 MG/DL (7-18); BUN/CREATININE RATIO 8.7 (6.6-38.0); CALCIUM 9.6 MG/DL (8.5-10.1); CHLORIDE 99 MMOL/L (99-107); CREATININE 1.03 MG/DL (0.40-0.90); GLUCOSE 245 MG/DL (70-104); POTASSIUM 4.2 MMOL/L (3.5-5.1); SODIUM 137 MMOL/L (135-145); TOTAL CARBON DIOXIDE 27.6 MMOL/L (24-32); eGFR 55 ML/MIN
[2020-03-02 22:43] LABS: ALANINE AMINOTRANSFERASE 15 U/L (12-78); ALBUMIN/GLOBULIN RATIO 0.7 (1.1-1.5); ALKALINE PHOSPHATASE 95 IU/L (46-116); ASPARTATE AMINO TRANSFERASE 30 U/L (10-37); BILIRUBIN,TOTAL 0.4 MG/DL (0.1-1.0); MAGNESIUM 1.6 MG/DL (1.5-2.4); TOTAL PROTEIN 7.3 G/DL (6.4-8.2); TROPONIN I < 0.04 NG/ML (0.0-0.05)
[2020-03-02] MEDS ORDERED: diltiazem 5mg/ml 5ml inj. IV ONE (22:50)
[2020-03-02] MEDS ORDERED: morphine 4 MG/ML inj SYRINge IV ONE (22:50)
[2020-03-02] MEDS: metoprolol tartrate 1mg/ml inj IV SCH ×2 (23:22→23:50)
[2020-03-02 23:48] LABS: CLARITY,URINE CLEAR (Clear); COLOR,URINE YELLOW (Yellow); GLUCOSE, URINE NEGATIVE (Neg); KETONES,URINE NEGATIVE (Neg); LEUKOCYTE ESTERASE ,URINE MODERATE (Neg); NITRITES, URINE NEGATIVE (Neg); OCCULT BLOOD,URINE MODERATE (Neg); PROTEIN,URINE NEGATIVE (Neg); UROBILINOGEN,URINE 0.2 E.U/dL (0.2-1.0)
[2020-03-02 23:49] LABS: UA COLLECTION TYPE CLN CATCH MIDSTREAM
[2020-03-02 23:51] LABS: BACTERIA,URINE 1+ /HPF (Neg); RBC,URINE 0-2 /HPF (0-2); SQUAMOUS EPITHELIAL CELL,UR FEW /LPF (FEW); WBC,URINE 0-4 /HPF (0-4)
[2020-03-03] MEDS: metoprolol tartrate 1mg/ml inj IV SCH (00:24)
[2020-03-03] MEDS ORDERED: metoprolol succinate 25mg (24-HOUR) SR. Tablet PO ONE (02:05)
[2020-03-03 02:43] VITALS: BP 136/65
== END 2020-03-03 02:44 | disposition home or self-care (01) ==
LOC: ER 21:41
DX: I48.3 Typical atrial flutter (principal); R00.2 Palpitations; R07.9 Chest pain, unspecified; I25.10 Atherosclerotic heart disease of native coronary artery without angina pectoris; I50.9 Heart failure, unspecified; E78.00 Pure hypercholesterolemia, unspecified; I25.2 Old myocardial infarction; J44.9 Chronic obstructive pulmonary disease, unspecified; K21.9 Gastro-esophageal reflux disease without esophagitis; E11.9 Type 2 diabetes mellitus without complications; M19.90 Unspecified osteoarthritis, unspecified site; G89.29 Other chronic pain; Z87.01 Personal history of pneumonia (recurrent); Z86.711 Personal history of pulmonary embolism; Z90.49 Acquired absence of other specified parts of digestive tract; Z98.890 Other specified postprocedural states; Z88.6 Allergy status to analgesic agent; Z88.8 Allergy status to other drugs, medicaments and biological substances; Z79.82 Long term (current) use of aspirin; Z79.899 Other long term (current) drug therapy
CPT/HCPCS: 36415; 71045; 80053; 81001; 83735; 83880; 84484; 85025; 87088; 93005; 96365; 96375; 96376; 99285; J2060; J2270; J2405; J3475; J7030; J3490

== ENCOUNTER 2020-03-13 03:26 | Inpatient (IN) | payer MEDICARE, MEDICAID ==
[~2020-03-13] VITALS: Ht 157.5 cm; Wt 170.4 kg
[2020-03-13] MEDS ORDERED: diltiazem 5mg/ml 5ml inj. IV ONE (03:50)
[2020-03-13] MEDS ORDERED: labetalol 20mg/4ml (5mg/ml) syringe IV ONE (03:50)
[2020-03-13] MEDS ORDERED: diltiazem-NS 100mg/100ml 100 ML IV SCH ×2 (04:00→08:00)
[2020-03-13] MEDS ORDERED: diltiazem-D5W 125mg/125ml 125 ML IV SCH (04:00)
[2020-03-13] MEDS ORDERED: normal saline 1000ml 1,000 ML IV ONE (04:00)
[2020-03-13 04:26] LABS: BASOPHILS # (AUTO) 0.1 X10'3 (0-0.2); BASOPHILS % (AUTO) 0.4 % (0-1); EOSINOPHILS # (AUTO) 0.1 X10'3 (0-0.9); EOSINOPHILS % (AUTO) 0.5 % (0-6); HEMOGLOBIN 10.8 g/dl (12.0-16.0); LYMPHOCYTES # (AUTO) 4.3 X10'3 (1.1-4.8); MEAN CORPUSCULAR HEMOGLOBIN 25.8 PG (27.0-31.0); MEAN CORPUSCULAR HGB CONC 30.9 g/dL (33.0-36.5); MEAN CORPUSCULAR VOLUME 83.6 FL (78-98); MEAN PLATELET VOLUME 8.5 FL (7.4-10.4); MONOCYTES # (AUTO) 1.2 X10'3 (0-0.9); MONOCYTES % (AUTO) 7.5 % (2-12); NEUTROPHILS # (AUTO) 10.7 X10'3 (1.8-7.7); NEUTROPHILS % (AUTO) 65.6 % (42-75); PLATELET COUNT 340 X10'3 (140-440); RED BLOOD COUNT 4.18 X10'6 (4.20-5.60); RED CELL DISTRIBUTION WIDTH 17.9 % (11.5-14.5); WHITE BLOOD COUNT 16.4 X10'3 (4.5-11.0)
[2020-03-13] MEDS ORDERED: ondansetron/PF 4mg/2ml inj IV ONE (04:40)
[2020-03-13] MEDS ORDERED: morphine 4 MG/ML inj SYRINge IV ONE (04:40)
[2020-03-13 04:41] LABS: ALANINE AMINOTRANSFERASE 14 U/L (12-78); ALBUMIN/GLOBULIN RATIO 0.8 (1.1-1.5); ALKALINE PHOSPHATASE 87 IU/L (46-116); ANION GAP 9 (8-16); ASPARTATE AMINO TRANSFERASE 10 U/L (10-37); BILIRUBIN,TOTAL 0.2 MG/DL (0.1-1.0); BLOOD UREA NITROGEN 12 MG/DL (7-18); BUN/CREATININE RATIO 11.4 (6.6-38.0); CHLORIDE 99 MMOL/L (99-107); CREATININE 1.05 MG/DL (0.40-0.90); GLUCOSE 408 MG/DL (70-104); POTASSIUM 4.3 MMOL/L (3.5-5.1); SODIUM 138 MMOL/L (135-145); TOTAL CARBON DIOXIDE 30.5 MMOL/L (24-32); eGFR 54 ML/MIN
[2020-03-13 04:51] LABS: CALCIUM 9.7 MG/DL (8.5-10.1)
[2020-03-13] MEDS ORDERED: ISOS30TA9 PO (05:04)
[2020-03-13] MEDS ORDERED: PRED10TA23 PO (05:06)
[2020-03-13] MEDS ORDERED: RANO500T3 PO (05:07)
[2020-03-13] MEDS ORDERED: ATOR40TA PO (05:09)
[2020-03-13] MEDS ORDERED: magnesium Cl slow-release 64mg tablet PO PRN (06:00)
[2020-03-13] MEDS ORDERED: HYDROcodone/acetaminophen 5mg/325mg tablet PO PRN (06:00)
[2020-03-13] MEDS ORDERED: ondansetron/PF 4mg/2ml inj IV PRN (06:00)
[2020-03-13] MEDS ORDERED: magnesium 2GM in 50ml NS 50 ML IV PRN (06:00)
[2020-03-13] MEDS ORDERED: potassium CL 10mEq/100ml bag 100 ML IV PRN ×2 (06:00)
[2020-03-13] MEDS ORDERED: potassium Cl 20 mEq SR tablet PO PRN ×2 (06:00)
[2020-03-13] MEDS ORDERED: magnesium 4gm in 100ml NS 100 ML IV PRN (06:00)
[2020-03-13] MEDS ORDERED: acetaminophen 325mg tablet PO PRN ×2 (06:00)
[2020-03-13] MEDS ORDERED: non-formulary drug (Budesonide/Formoterol Fumarate (Symbicort 80-4.5 Mcg Inhaler) 2 PUFFS) INH SCH (06:25)
[2020-03-13] MEDS ORDERED: ROPINIRole 0.25mg tablet PO PRN (06:25)
--- NOTE | 2020-03-13 06:50 | NUR ---
Patient arrived to PCU 3018B on ED [facility]. Transferred to bed with no assistance. Vital signs: T 98.8, HR 135, RR 15 O2 99% on 6L NC, BP 108/58, Pain 9/10. Patient oriented to room and to call light. Cardizem at 5 mg. Patient on mobile cardiac monitoring. Patient offers no complaints at this time. All immediate needs met.
[2020-03-13 07:00] VITALS: BP 108/58
[2020-03-13] MEDS: isosorbide dinitrate 30mg tablet PO SCH ×2 (08:00→19:13)
[2020-03-13] MEDS: K and/or MAG REPLACEMENT MC SCH ×2 (08:00→19:13)
[2020-03-13] MEDS ORDERED: heparin, porcine 5000 units/ml vial SQ SCH (08:00)
[2020-03-13] MEDS ORDERED: furosemide 20MG tablet PO SCH (08:00)
--- NOTE | 2020-03-13 08:25 | NUR ---
Paged Dr. Lopez: PAGER ID: [phone] MESSAGE: RE: Nohemy Tyler [phone]. New ER admit. NO diet order. Can I order a heart healthy tray? Thank you. Lana [phone]
[2020-03-13] MEDS: hydroxychloroquine 200mg tablet PO SCH ×2 (08:38→19:12)
[2020-03-13] MEDS: roflumilast 500mcg tablet PO SCH (08:39)
[2020-03-13] MEDS: cyclobenzaprine 10mg tablet PO SCH ×3 (08:39→20:27)
[2020-03-13] MEDS: sulfaSALAZINE 500 MG tablet PO SCH ×2 (08:39→19:13)
[2020-03-13] MEDS: ferrous gluconate 324mg tablet PO SCH (08:39)
[2020-03-13] MEDS: apixaban 5mg tablet PO SCH ×2 (08:39→19:12)
[2020-03-13] MEDS: potassium chloride 8mEq ER tablet PO SCH (08:39)
[2020-03-13] MEDS: pantoprazole 40mg Tablet.DR PO SCH (08:39)
[2020-03-13] MEDS: ranolazine 500mg SR tablet (Q12H) PO SCH ×2 (08:40→19:12)
[2020-03-13] MEDS: albuterol 2.5 MG/3 ML nebule NEB SCH ×2 (09:00→15:00)
[2020-03-13] MEDS: budesonide 0.5mg/2ml UD nebule IH SCH ×2 (09:37→19:26)
[2020-03-13] MEDS ORDERED: ipratropium/albuterol 3ml nebule NEB PRN (10:00)
[2020-03-13] MEDS ORDERED: glucagon, human recombinant 1mg kit SUBCUT PRN (10:45)
[2020-03-13] MEDS ORDERED: MESSAGE TO PHARMACY PO ONE (10:45)
[2020-03-13] MEDS ORDERED: dextrose ORAL solution 15 GM/59 ML bottle PO PRN ×2 (10:45)
[2020-03-13] MEDS ORDERED: dextrose 50%-water 50ml dispensing syringe IV PRN ×2 (10:45)
[2020-03-13 11:00] VITALS: BP 119/84
[2020-03-13] MEDS: ipratropium/albuterol 3ml nebule NEB SCH ×4 (11:00→23:15)
[2020-03-13 11:11] LABS: HEMOGLOBIN A1C 8.4 % (4.5-6.2)
[2020-03-13] MEDS: metoprolol tartrate 50mg tablet PO SCH ×2 (12:08→19:13)
[2020-03-13] MEDS: morphine 2 MG/ML inj. syringe IV PRN ×2 (12:18→20:28)
[2020-03-13] MEDS ORDERED: iohexol 350MG/ML 100ml bottle IV ONE (12:33)
[2020-03-13 13:21] LABS: URINE AMPHETAMINE SCREEN NEGATIVE (Neg); URINE BARBITUATE SCREEN NEGATIVE (Neg); URINE BENZODIAZEPINES SCREEN NEGATIVE (Neg); URINE CANNABINOID SCREEN NEGATIVE (Neg); URINE COCAINE SCREEN NEGATIVE (Neg); URINE METHADONE SCREEN NEGATIVE (Neg); URINE OPIATE SCREEN POSITIVE (Neg); URINE PHENCYCLIDINE SCREEN NEGATIVE (Neg)
[2020-03-13] MEDS: CefTRIAXone/D5W-Rocephin 1gm 50 ML IV SCH (13:36)
[2020-03-13] MEDS: azithromycin/NS 500mg/250ml 250 ML IV SCH (14:43)
[2020-03-13 15:00] VITALS: BP 95/53
[2020-03-13] MEDS ORDERED: methylPREDNISolone sod succ 125mg/2ml vial IV ONE (15:10)
[2020-03-13] MEDS ORDERED: labetalol 20mg/4ml (5mg/ml) syringe IV PRN (15:15)
[2020-03-13 18:00] VITALS: BP 103/67
--- NOTE | 2020-03-13 18:26 | NUR ---
Problems reprioritized. Patient report given, questions answered & plan of care reviewed with Norah JEFFRIES. Patient stable at transfer of care.
--- NOTE | 2020-03-13 18:41 | NUR ---
Patient in room PCU 3018. I have received report from Lana JEFFRIES and had the opportunity to ask questions and assume patient care.
[2020-03-13] MEDS: insulin Lispro (HumaLOG) vial - multi-dose SQ SCH ×2 (19:09→22:28)
[2020-03-13] MEDS: methylPREDNISolone sod succ 125mg/2ml vial IV SCH (19:11)
[2020-03-13] MEDS: lactobacillus rhamnosus 10,000 MMU CELLS/CAPSULE PO SCH (19:12)
[2020-03-13] MEDS ORDERED: insulin glargine (Lantus) pen - multi-dose SQ SCH (21:00)
[2020-03-13] MEDS ORDERED: temazepam 15mg capsule PO PRN (21:00)
--- NOTE | 2020-03-13 21:35 | NUR ---
PAGER ID: [phone] MESSAGE: Nohemy Tyler [phone]: Patients current glucose is 455. She will get 12 units of lantus and 5 units of humalog per the protocol. Would you like to add anything else> -Norah JEFFRIES [phone]
[2020-03-13 22:00] VITALS: BP 101/64
[2020-03-14] MEDS: methylPREDNISolone sod succ 125mg/2ml vial IV SCH ×2 (01:21→07:38)
[2020-03-14 02:00] VITALS: BP 110/72
[2020-03-14] MEDS: morphine 2 MG/ML inj. syringe IV PRN ×2 (03:45→10:18)
[2020-03-14 05:50] LABS: BASOPHILS % (AUTO) 0.1 % (0-1); EOSINOPHILS % (AUTO) 0 % (0-6); HEMATOCRIT 30.4 % (35.0-45.0); HEMOGLOBIN 9.5 g/dl (12.0-16.0); LYMPHOCYTES # (AUTO) 0.9 X10'3 (1.1-4.8); LYMPHOCYTES % (AUTO) 8.6 % (21-51); MEAN CORPUSCULAR HEMOGLOBIN 25.8 PG (27.0-31.0); MEAN CORPUSCULAR HGB CONC 31.1 g/dL (33.0-36.5); MEAN CORPUSCULAR VOLUME 83.1 FL (78-98); MEAN PLATELET VOLUME 8.3 FL (7.4-10.4); MONOCYTES # (AUTO) 0.2 X10'3 (0-0.9); MONOCYTES % (AUTO) 1.7 % (2-12); NEUTROPHILS % (AUTO) 89.6 % (42-75); PLATELET COUNT 275 X10'3 (140-440); RED BLOOD COUNT 3.66 X10'6 (4.20-5.60); RED CELL DISTRIBUTION WIDTH 18.3 % (11.5-14.5); WHITE BLOOD COUNT 10.1 X10'3 (4.5-11.0)
--- NOTE | 2020-03-14 06:07 | NUR ---
Problems reprioritized. Patient report given, questions answered & plan of care reviewed with CATRACHITO JEFFRIES.
[2020-03-14 06:09] LABS: ALANINE AMINOTRANSFERASE 8 U/L (12-78); ALBUMIN 2.5 G/DL (3.4-5.0); ALBUMIN/GLOBULIN RATIO 0.6 (1.1-1.5); ALKALINE PHOSPHATASE 75 IU/L (46-116); ANION GAP 9 (8-16); ASPARTATE AMINO TRANSFERASE 8 U/L (10-37); BILIRUBIN,TOTAL 0.4 MG/DL (0.1-1.0); BLOOD UREA NITROGEN 13 MG/DL (7-18); BUN/CREATININE RATIO 16.5 (6.6-38.0); CHLORIDE 102 MMOL/L (99-107); CREATININE 0.79 MG/DL (0.40-0.90); GLUCOSE 341 MG/DL (70-104); MAGNESIUM 2.1 MG/DL (1.5-2.4); POTASSIUM 4.5 MMOL/L (3.5-5.1); SODIUM 140 MMOL/L (135-145); TOTAL CARBON DIOXIDE 29.4 MMOL/L (24-32); TOTAL PROTEIN 6.4 G/DL (6.4-8.2); eGFR 74 ML/MIN
--- NOTE | 2020-03-14 07:03 | NUR ---
Patient in room PCU 3018. I have received report from Norah JEFFRIES and had the opportunity to ask questions and assume patient care.
[2020-03-14 07:17] VITALS: BP 103/69
[2020-03-14] MEDS: ipratropium/albuterol 3ml nebule NEB SCH ×2 (07:24→11:00)
[2020-03-14] MEDS: budesonide 0.5mg/2ml UD nebule IH SCH (07:24)
[2020-03-14] MEDS: isosorbide dinitrate 30mg tablet PO SCH (07:32)
[2020-03-14] MEDS: sulfaSALAZINE 500 MG tablet PO SCH (07:32)
[2020-03-14] MEDS: metoprolol tartrate 50mg tablet PO SCH (07:34)
[2020-03-14] MEDS: roflumilast 500mcg tablet PO SCH (07:35)
[2020-03-14] MEDS: ranolazine 500mg SR tablet (Q12H) PO SCH (07:35)
[2020-03-14] MEDS: potassium chloride 8mEq ER tablet PO SCH (07:35)
[2020-03-14] MEDS: cyclobenzaprine 10mg tablet PO SCH (07:36)
[2020-03-14] MEDS: pantoprazole 40mg Tablet.DR PO SCH (07:36)
[2020-03-14] MEDS: lactobacillus rhamnosus 10,000 MMU CELLS/CAPSULE PO SCH (07:37)
[2020-03-14] MEDS: hydroxychloroquine 200mg tablet PO SCH (07:37)
[2020-03-14] MEDS: ferrous gluconate 324mg tablet PO SCH (07:37)
[2020-03-14] MEDS: apixaban 5mg tablet PO SCH (07:37)
[2020-03-14] MEDS: azithromycin/NS 500mg/250ml 250 ML IV SCH (07:38)
[2020-03-14] MEDS: CefTRIAXone/D5W-Rocephin 1gm 50 ML IV SCH (07:39)
[2020-03-14] MEDS: insulin Lispro (HumaLOG) vial - multi-dose SQ SCH (08:53)
[2020-03-14] MEDS: K and/or MAG REPLACEMENT MC SCH (08:54)
--- NOTE | 2020-03-14 10:51 | NUR ---
PAGER ID: [phone] MESSAGE: [id number] Adalid Walton Pt. was unable to get a F/U appointment until March. Mirian JEFFRIES [phone]
[2020-03-14 11:00] VITALS: BP 105/66
--- NOTE | 2020-03-14 11:19 | NUR ---
patient refused svn tx going home Addendum: 03/14/20 at 1120 by Miranda Rivera RT Amended: Links added.
--- NOTE | 2020-03-14 11:40 | NUR ---
Patient has been cleared to discharge. Patient has been sinus rhythm. Denies CP, dypsnea or lightheadedness. Patient requesting to go home. Patient made F/U appointment for as soon as possible. Education provided regarding her diabetes and pain management. Tele removed. Extended PIV removed. Pt. wheeled out and she left in stable condition accompanied by her .
--- NOTE | 2020-03-14 12:13 | NUR ---
Pt with A1c 8.4% seen at bedside prior for discharge for written and verbal DM education. Pt documented with H T2DM steroid induced on PO meds for management. Patient's A1c is up from 6.6% in December of this year per records. Pt states she has been taking Metformin per rx however not checking BG levels d/t previously only being dx with pre-diabetes so she was never provided with a glucometer. Per discharge summary no changes to her Metformin rx upon discharge. Pt states she has made an appointment with her MD in March. RD reviewed nutrition therapy for diabetes. Pt states she generally doesn't eat throughout the day and typically only eats dinner. RD encouraged increased PO intake throughout the day for steady carbohydrate intake rather than high carbohydrate intake at dinner alone. Pt verbalized understanding. Pt states she has multiple family members with diabetes so doesn't have many questions regarding DM management. RD informed pt of the role of wt loss and increased physical activity for DM management however pt reports she has limited mobility at this time. Pt provided with RD contact information and encouraged to reach out. Will remain available. Addendum: 03/14/20 at [address] Amended: Links added.
[2020-03-15] MEDS ORDERED: azithromycin 250mg tablet PO SCH (08:00)
== END 2020-03-14 11:43 | disposition home or self-care (01) | DRG 308 ==
LOC: ER 03:27 → ED HOLD 06:26 → OBSVTOIN 06:26 → PCU 3S 06:50
PROVIDERS: ADMIT Internal Medicine; ATTEND Family Medicine
PROC: B32T1ZZ Computerized Tomography (CT Scan) of Left Pulmonary Artery using Low Osmolar Contrast (ICD-10-PCS; principal; 2020-03-13)
PROC: B3201ZZ Computerized Tomography (CT Scan) of Thoracic Aorta using Low Osmolar Contrast (ICD-10-PCS; 2020-03-13)
PROC: B32S1ZZ Computerized Tomography (CT Scan) of Right Pulmonary Artery using Low Osmolar Contrast (ICD-10-PCS; 2020-03-13)
DX: I47.1 Supraventricular tachycardia (principal); N17.0 Acute kidney failure with tubular necrosis; J96.10 Chronic respiratory failure, unspecified whether with hypoxia or hypercapnia; Z68.44 Body mass index [BMI] 60.0-69.9, adult; I11.0 Hypertensive heart disease with heart failure; E66.01 Morbid (severe) obesity due to excess calories; E11.9 Type 2 diabetes mellitus without complications; E78.00 Pure hypercholesterolemia, unspecified; E78.5 Hyperlipidemia, unspecified; G47.30 Sleep apnea, unspecified; G89.4 Chronic pain syndrome; J44.9 Chronic obstructive pulmonary disease, unspecified; M06.9 Rheumatoid arthritis, unspecified; I25.10 Atherosclerotic heart disease of native coronary artery without angina pectoris; Z96.653 Presence of artificial knee joint, bilateral; I48.91 Unspecified atrial fibrillation; I50.9 Heart failure, unspecified; K21.9 Gastro-esophageal reflux disease without esophagitis; Z88.8 Allergy status to other drugs, medicaments and biological substances; I25.2 Old myocardial infarction; Z79.52 Long term (current) use of systemic steroids; Z82.3 Family history of stroke; Z82.49 Family history of ischemic heart disease and other diseases of the circulatory system; Z82.5 Family history of asthma and other chronic lower respiratory diseases; Z83.3 Family history of diabetes mellitus; Z86.711 Personal history of pulmonary embolism; Z99.81 Dependence on supplemental oxygen; Z90.49 Acquired absence of other specified parts of digestive tract; Z79.899 Other long term (current) drug therapy
CPT/HCPCS: 36415; 71045; 71275; 76937; 80053; 80305; 82948; 83036; 83735; 84145; 84484; 85025; 87040; 87081; 93005; 94640; 94760; 96365; 96375; 96376; 97161; 97530; 97535; 99285; G0378; J0456; J0696; J1815; J2270; J2405; J2930; J3490; J7030; J7626; J8597; Q9967

== ENCOUNTER 2020-06-22 16:16 | Emergency (ER) | payer MEDICARE, MEDICAID ==
[~2020-06-22] VITALS: Ht 157.5 cm; Wt 146.8 kg
[~2020-06-22 16:16] MED LIST changes: -ALBU8.5H8 IH; -ATOR20TA66 PO; +ATOR40TA PO; -LACT1CAP26 PO; +LEVA0.6319 NEB; -METO5TAB98 PO; +PRED10TA23 PO; -PRED5TAB PO
[2020-06-22] MEDS ORDERED: morphine IR (immed. release) 30mg tablet PO PRN (17:20)
[2020-06-22 17:34] LABS: BASOPHILS # (AUTO) 0.1 X10'3 (0-0.2); BASOPHILS % (AUTO) 0.5 % (0-1); EOSINOPHILS # (AUTO) 0.2 X10'3 (0-0.9); EOSINOPHILS % (AUTO) 1.3 % (0-6); HEMOGLOBIN 9.8 g/dl (12.0-16.0); LYMPHOCYTES # (AUTO) 2.9 X10'3 (1.1-4.8); LYMPHOCYTES % (AUTO) 20.8 % (21-51); MEAN CORPUSCULAR HEMOGLOBIN 23.9 PG (27.0-31.0); MEAN CORPUSCULAR HGB CONC 30.6 g/dL (33.0-36.5); MEAN PLATELET VOLUME 8.6 FL (7.4-10.4); MONOCYTES % (AUTO) 6.9 % (2-12); NEUTROPHILS # (AUTO) 9.7 X10'3 (1.8-7.7); NEUTROPHILS % (AUTO) 70.5 % (42-75); PLATELET COUNT 406 X10'3 (140-440); RED BLOOD COUNT 4.11 X10'6 (4.20-5.60); RED CELL DISTRIBUTION WIDTH 18.6 % (11.5-14.5); WHITE BLOOD COUNT 13.7 X10'3 (4.5-11.0)
[2020-06-22 17:54] LABS: ALBUMIN 3.3 G/DL (3.4-5.0); ANION GAP 10 (8-16); BLOOD UREA NITROGEN 11 MG/DL (7-18); BUN/CREATININE RATIO 13.4 (6.6-38.0); CALCIUM 9.3 MG/DL (8.5-10.1); CHLORIDE 102 MMOL/L (99-107); CREATININE 0.82 MG/DL (0.40-0.90); GLUCOSE 185 MG/DL (70-104); POTASSIUM 3.7 MMOL/L (3.5-5.1); SODIUM 140 MMOL/L (135-145); TOTAL CARBON DIOXIDE 28.2 MMOL/L (24-32); TROPONIN I < 0.04 NG/ML (0.0-0.05); eGFR 71 ML/MIN
[2020-06-22] MEDS ORDERED: iohexol 350MG/ML 100ml bottle IV ONE (18:01)
[2020-06-22] MEDS ORDERED: ondansetron/PF 4mg/2ml inj IV ONE (18:50)
[2020-06-22] MEDS ORDERED: morphine 10mg/ml inj. IV ONE (18:50)
[2020-06-22] MEDS ORDERED: AMOX-117 PO (20:29)
[2020-06-22] MEDS ORDERED: diazepam 5mg tablet PO ONE (20:30)
[2020-06-22 21:01] VITALS: BP 132/70
== END 2020-06-22 21:03 | disposition home or self-care (01) ==
LOC: ER 16:16
DX: M54.9 Dorsalgia, unspecified (principal); J42 Unspecified chronic bronchitis; I25.10 Atherosclerotic heart disease of native coronary artery without angina pectoris; I50.9 Heart failure, unspecified; E78.00 Pure hypercholesterolemia, unspecified; I25.2 Old myocardial infarction; G47.30 Sleep apnea, unspecified; K21.9 Gastro-esophageal reflux disease without esophagitis; E11.9 Type 2 diabetes mellitus without complications; M19.90 Unspecified osteoarthritis, unspecified site; G89.29 Other chronic pain; M06.9 Rheumatoid arthritis, unspecified; Z86.711 Personal history of pulmonary embolism; Z90.49 Acquired absence of other specified parts of digestive tract; Z98.890 Other specified postprocedural states; Z88.8 Allergy status to other drugs, medicaments and biological substances; Z79.01 Long term (current) use of anticoagulants; Z79.82 Long term (current) use of aspirin; Z79.899 Other long term (current) drug therapy
CPT/HCPCS: 71045; 71275; 80048; 83880; 84484; 85025; 85610; 87635; 93005; 96374; 96375; 99285; C9803; J2270; J2405; Q9967

== ENCOUNTER 2020-07-09 16:56 | Emergency (ER) | payer MEDICARE, MEDICAID ==
[~2020-07-09] VITALS: Ht 154.9 cm; Wt 150.0 kg
[2020-07-09 17:50] LABS: BASOPHILS # (AUTO) 0.1 X10'3 (0-0.2); BASOPHILS % (AUTO) 0.7 % (0-1); EOSINOPHILS # (AUTO) 0.1 X10'3 (0-0.9); EOSINOPHILS % (AUTO) 0.6 % (0-6); HEMATOCRIT 30.7 % (35.0-45.0); HEMOGLOBIN 9.7 g/dl (12.0-16.0); LYMPHOCYTES # (AUTO) 3.3 X10'3 (1.1-4.8); LYMPHOCYTES % (AUTO) 19.1 % (21-51); MEAN CORPUSCULAR HEMOGLOBIN 23.9 PG (27.0-31.0); MEAN CORPUSCULAR HGB CONC 31.4 g/dL (33.0-36.5); MEAN CORPUSCULAR VOLUME 76.2 FL (78-98); MEAN PLATELET VOLUME 8.2 FL (7.4-10.4); MONOCYTES # (AUTO) 1.9 X10'3 (0-0.9); MONOCYTES % (AUTO) 10.7 % (2-12); NEUTROPHILS # (AUTO) 12.1 X10'3 (1.8-7.7); NEUTROPHILS % (AUTO) 68.9 % (42-75); PLATELET COUNT 421 X10'3 (140-440); RED BLOOD COUNT 4.03 X10'6 (4.20-5.60); RED CELL DISTRIBUTION WIDTH 18.6 % (11.5-14.5); WHITE BLOOD COUNT 17.5 X10'3 (4.5-11.0)
[2020-07-09 17:54] LABS: D-DIMER 0.26 MG/L FEU (0-0.50)
[2020-07-09 18:04] LABS: ALANINE AMINOTRANSFERASE 11 U/L (12-78); ALBUMIN 3.1 G/DL (3.4-5.0); ALBUMIN/GLOBULIN RATIO 0.8 (1.1-1.5); ALKALINE PHOSPHATASE 67 IU/L (46-116); ANION GAP 4 (8-16); ASPARTATE AMINO TRANSFERASE 10 U/L (10-37); BILIRUBIN,TOTAL 0.4 MG/DL (0.1-1.0); CALCIUM 9.6 MG/DL (8.5-10.1); CHLORIDE 97 MMOL/L (99-107); GLUCOSE 197 MG/DL (70-104); POTASSIUM 3.8 MMOL/L (3.5-5.1); SODIUM 136 MMOL/L (135-145); TOTAL CARBON DIOXIDE 35.2 MMOL/L (24-32); TOTAL PROTEIN 6.8 G/DL (6.4-8.2); eGFR 73 ML/MIN
[2020-07-09 18:09] LABS: BLOOD UREA NITROGEN 8 MG/DL (7-18)
[2020-07-09 18:15] LABS: ANISOCYTOSIS 2+; HYPOCHROMASIA 1+; MICROCYTOSIS 1+; PLATELET ESTIMATE NORMAL; POLYCHROMASIA FEW; STOMATOCYTES 2+; TEAR DROP CELLS FEW
[2020-07-09] MEDS ORDERED: DOXYCYCLINE 100MG CAPSULE PO STA (18:24)
[2020-07-09] MEDS ORDERED: DOXY100C43 PO (18:27)
--- NOTE | 2020-07-09 18:41 | NUR ---
pt dc'd home, waiting for ride with family, needs to be on 5 [id number] 21/04
[2020-07-09 18:42] VITALS: BP 112/67
== END 2020-07-09 19:08 | disposition home or self-care (01) ==
LOC: ER 16:57
DX: J40 Bronchitis, not specified as acute or chronic (principal); I25.10 Atherosclerotic heart disease of native coronary artery without angina pectoris; I50.9 Heart failure, unspecified; E78.00 Pure hypercholesterolemia, unspecified; I25.2 Old myocardial infarction; J44.9 Chronic obstructive pulmonary disease, unspecified; G47.30 Sleep apnea, unspecified; E11.9 Type 2 diabetes mellitus without complications; M19.90 Unspecified osteoarthritis, unspecified site; M06.9 Rheumatoid arthritis, unspecified; Z90.49 Acquired absence of other specified parts of digestive tract; Z98.890 Other specified postprocedural states; Z86.711 Personal history of pulmonary embolism; Z88.8 Allergy status to other drugs, medicaments and biological substances; Z79.01 Long term (current) use of anticoagulants; Z79.899 Other long term (current) drug therapy
CPT/HCPCS: 36415; 71045; 80053; 83880; 84145; 85008; 85025; 85379; 93005; 99285

== ENCOUNTER 2020-07-18 15:50 | Emergency (ER) | payer MEDICARE, MEDICAID ==
[~2020-07-18] VITALS: Ht 157.5 cm; Wt 150.0 kg
[~2020-07-18 15:50] MED LIST changes: +DOXY100C43 PO
[2020-07-18 16:38] LABS: BASOPHILS % (AUTO) 0.4 % (0-1); EOSINOPHILS # (AUTO) 0.1 X10'3 (0-0.9); EOSINOPHILS % (AUTO) 1.4 % (0-6); HEMATOCRIT 31.1 % (35.0-45.0); HEMOGLOBIN 9.4 g/dl (12.0-16.0); LYMPHOCYTES # (AUTO) 1.9 X10'3 (1.1-4.8); LYMPHOCYTES % (AUTO) 18.5 % (21-51); MEAN CORPUSCULAR HGB CONC 30.4 g/dL (33.0-36.5); MEAN CORPUSCULAR VOLUME 75.7 FL (78-98); MEAN PLATELET VOLUME 8.2 FL (7.4-10.4); MONOCYTES # (AUTO) 0.7 X10'3 (0-0.9); MONOCYTES % (AUTO) 6.8 % (2-12); NEUTROPHILS # (AUTO) 7.6 X10'3 (1.8-7.7); NEUTROPHILS % (AUTO) 72.9 % (42-75); PLATELET COUNT 425 X10'3 (140-440); RED BLOOD COUNT 4.11 X10'6 (4.20-5.60); RED CELL DISTRIBUTION WIDTH 18.5 % (11.5-14.5); WHITE BLOOD COUNT 10.5 X10'3 (4.5-11.0)
[2020-07-18 16:55] LABS: ALANINE AMINOTRANSFERASE 9 U/L (12-78); ALBUMIN 3.1 G/DL (3.4-5.0); ALBUMIN/GLOBULIN RATIO 0.8 (1.1-1.5); ALKALINE PHOSPHATASE 65 IU/L (46-116); ANION GAP 10 (8-16); ASPARTATE AMINO TRANSFERASE 8 U/L (10-37); BILIRUBIN,TOTAL 0.3 MG/DL (0.1-1.0); BLOOD UREA NITROGEN 6 MG/DL (7-18); BUN/CREATININE RATIO 6.9 (6.6-38.0); CALCIUM 9.1 MG/DL (8.5-10.1); CHLORIDE 106 MMOL/L (99-107); CREATININE 0.87 MG/DL (0.40-0.90); GLUCOSE 235 MG/DL (70-104); POTASSIUM 3.7 MMOL/L (3.5-5.1); SODIUM 142 MMOL/L (135-145); TOTAL CARBON DIOXIDE 26.2 MMOL/L (24-32); eGFR 67 ML/MIN
--- NOTE | 2020-07-18 17:21 | NUR ---
Patient helped into position of comfort, oxygen applied. Patient states inspiratory chest pain is present. Marco ALLISON in evaluating patient.
[2020-07-18] MEDS ORDERED: ipratropium/albuterol 3ml nebule NEB ONE (17:25)
[2020-07-18] MEDS ORDERED: methylPREDNISolone sod succ 125mg/2ml vial IV ONE (17:25)
[2020-07-18] MEDS ORDERED: morphine ER 30mg tablet PO STA (17:37)
[2020-07-18 18:30] VITALS: BP 136/70
== END 2020-07-18 18:31 | disposition home or self-care (01) ==
LOC: ER 15:50
DX: J44.9 Chronic obstructive pulmonary disease, unspecified (principal); R05 Cough; R07.89 Other chest pain; I25.10 Atherosclerotic heart disease of native coronary artery without angina pectoris; I50.9 Heart failure, unspecified; E78.00 Pure hypercholesterolemia, unspecified; I25.2 Old myocardial infarction; K21.9 Gastro-esophageal reflux disease without esophagitis; E11.9 Type 2 diabetes mellitus without complications; M19.90 Unspecified osteoarthritis, unspecified site; G89.29 Other chronic pain; F17.200 Nicotine dependence, unspecified, uncomplicated; Z87.01 Personal history of pneumonia (recurrent); Z86.711 Personal history of pulmonary embolism; Z90.49 Acquired absence of other specified parts of digestive tract; Z98.890 Other specified postprocedural states; Z88.8 Allergy status to other drugs, medicaments and biological substances; Z79.82 Long term (current) use of aspirin; Z79.2 Long term (current) use of antibiotics; Z79.899 Other long term (current) drug therapy
CPT/HCPCS: 36415; 71046; 80053; 83605; 83880; 85025; 87040; 93005; 94640; 96374; 99285; J2930

== ENCOUNTER 2020-08-12 19:02 | Emergency (ER) | payer MEDICARE, MEDICAID ==
[~2020-08-12] VITALS: Ht 157.5 cm; Wt 150.0 kg
[~2020-08-12 19:02] MED LIST changes: -DOXY100C43 PO
[2020-08-12 20:05] LABS: BASOPHILS # (AUTO) 0.1 X10'3 (0-0.2); BASOPHILS % (AUTO) 0.4 % (0-1); EOSINOPHILS # (AUTO) 0.3 X10'3 (0-0.9); HEMOGLOBIN 9.4 g/dl (12.0-16.0); LYMPHOCYTES # (AUTO) 4.2 X10'3 (1.1-4.8); LYMPHOCYTES % (AUTO) 30.1 % (21-51); MEAN CORPUSCULAR HEMOGLOBIN 22.5 PG (27.0-31.0); MEAN CORPUSCULAR HGB CONC 30.4 g/dL (33.0-36.5); MEAN PLATELET VOLUME 8.8 FL (7.4-10.4); MONOCYTES # (AUTO) 1.2 X10'3 (0-0.9); MONOCYTES % (AUTO) 8.4 % (2-12); NEUTROPHILS # (AUTO) 8.2 X10'3 (1.8-7.7); NEUTROPHILS % (AUTO) 59.1 % (42-75); PLATELET COUNT 463 X10'3 (140-440); RED BLOOD COUNT 4.19 X10'6 (4.20-5.60); RED CELL DISTRIBUTION WIDTH 19.3 % (11.5-14.5); WHITE BLOOD COUNT 13.8 X10'3 (4.5-11.0)
[2020-08-12 20:17] LABS: ALANINE AMINOTRANSFERASE 11 U/L (12-78); ALBUMIN 3.2 G/DL (3.4-5.0); ALBUMIN/GLOBULIN RATIO 0.9 (1.1-1.5); ALKALINE PHOSPHATASE 78 IU/L (46-116); ANION GAP 11 (8-16); ASPARTATE AMINO TRANSFERASE 12 U/L (10-37); BILIRUBIN,TOTAL 0.2 MG/DL (0.1-1.0); BLOOD UREA NITROGEN 12 MG/DL (7-18); BUN/CREATININE RATIO 13.2 (6.6-38.0); CALCIUM 9.5 MG/DL (8.5-10.1); CHLORIDE 104 MMOL/L (99-107); CREATININE 0.91 MG/DL (0.40-0.90); GLUCOSE 222 MG/DL (70-104); SODIUM 140 MMOL/L (135-145); TOTAL CARBON DIOXIDE 25.4 MMOL/L (24-32); TOTAL PROTEIN 6.9 G/DL (6.4-8.2); eGFR 63 ML/MIN
[2020-08-12] MEDS ORDERED: proCHLORperazine 10 MG/2 ml inj IV ONE (20:40)
[2020-08-12] MEDS ORDERED: acetaminophen 325mg tablet PO ONE (20:40)
[2020-08-12] MEDS ORDERED: normal saline 1000ml 1,000 ML IV ONE (20:40)
[2020-08-12] MEDS ORDERED: ondansetron/PF 4mg/2ml inj IV ONE (20:40)
[2020-08-12] MEDS ORDERED: morphine IR (immed. release) 30mg tablet PO ONE (20:40)
[2020-08-12] MEDS ORDERED: magnesium 2GM in 50ml NS 50 ML IV ONE (20:45)
[2020-08-12] MEDS ORDERED: diltiazem 5mg/ml 5ml inj. IV ONE (20:45)
[2020-08-12 21:27] LABS: PLATELET ESTIMATE INCREASED
[2020-08-12 21:28] LABS: ANISOCYTOSIS 2+; HYPOCHROMASIA 1+; MICROCYTOSIS 1+
--- NOTE | 2020-08-12 23:06 | NUR ---
Patient sitting up awaiting discharge. No distress. Speaking full sentences. On home O2. W/D with good color. Patient denies SOB. Patient denies any chest discomfort. Pulse is regular with a rate of 80. Patient taken to car by wheelchair. Patients son will be driving her home.
[2020-08-12 23:12] VITALS: BP 132/78
== END 2020-08-12 23:10 | disposition home or self-care (01) ==
LOC: ER 19:02
DX: R00.2 Palpitations (principal); R51.9 Headache, unspecified; R11.0 Nausea; I25.10 Atherosclerotic heart disease of native coronary artery without angina pectoris; I50.9 Heart failure, unspecified; E78.00 Pure hypercholesterolemia, unspecified; I25.2 Old myocardial infarction; J44.9 Chronic obstructive pulmonary disease, unspecified; G47.30 Sleep apnea, unspecified; E11.9 Type 2 diabetes mellitus without complications; K21.9 Gastro-esophageal reflux disease without esophagitis; M19.90 Unspecified osteoarthritis, unspecified site; G89.29 Other chronic pain; Z86.711 Personal history of pulmonary embolism; Z90.49 Acquired absence of other specified parts of digestive tract; Z98.890 Other specified postprocedural states; Z88.8 Allergy status to other drugs, medicaments and biological substances; Z79.82 Long term (current) use of aspirin; Z79.01 Long term (current) use of anticoagulants; Z79.84 Long term (current) use of oral hypoglycemic drugs; Z79.899 Other long term (current) drug therapy
CPT/HCPCS: 71045; 80053; 83880; 84484; 85025; 93005; 96365; 96375; 99285; J0780; J2405; J3475; J7030; 85008; J3490

== ENCOUNTER 2020-09-14 18:10 | Emergency (ER) | payer MEDICARE, MEDICAID ==
[~2020-09-14] VITALS: Ht 157.5 cm; Wt 140.9 kg
[2020-09-14 18:49] LABS: BASOPHILS # (AUTO) 0.3 X10'3 (0-0.2); EOSINOPHILS % (AUTO) 0.1 % (0-6); HEMATOCRIT 29.3 % (35.0-45.0); HEMOGLOBIN 8.8 g/dl (12.0-16.0); LYMPHOCYTES # (AUTO) 1.2 X10'3 (1.1-4.8); LYMPHOCYTES % (AUTO) 8.2 % (21-51); MEAN CORPUSCULAR HEMOGLOBIN 21.5 PG (27.0-31.0); MEAN CORPUSCULAR HGB CONC 29.9 g/dL (33.0-36.5); MEAN CORPUSCULAR VOLUME 71.8 FL (78-98); MONOCYTES # (AUTO) 0.5 X10'3 (0-0.9); MONOCYTES % (AUTO) 3.7 % (2-12); NEUTROPHILS # (AUTO) 12.7 X10'3 (1.8-7.7); PLATELET COUNT 539 X10'3 (140-440); RED BLOOD COUNT 4.08 X10'6 (4.20-5.60); RED CELL DISTRIBUTION WIDTH 19.6 % (11.5-14.5); WHITE BLOOD COUNT 14.8 X10'3 (4.5-11.0)
[2020-09-14 19:00] LABS: ALANINE AMINOTRANSFERASE 10 U/L (12-78); ALBUMIN 2.9 G/DL (3.4-5.0); ALBUMIN/GLOBULIN RATIO 0.7 (1.1-1.5); ALKALINE PHOSPHATASE 72 IU/L (46-116); ANION GAP 9 (8-16); ASPARTATE AMINO TRANSFERASE 8 U/L (10-37); BILIRUBIN,TOTAL 0.2 MG/DL (0.1-1.0); BLOOD UREA NITROGEN 10 MG/DL (7-18); CALCIUM 9.8 MG/DL (8.5-10.1); CHLORIDE 101 MMOL/L (99-107); CREATININE 0.91 MG/DL (0.40-0.90); GLUCOSE 223 MG/DL (70-104); POTASSIUM 4.4 MMOL/L (3.5-5.1); SODIUM 138 MMOL/L (135-145); TOTAL CARBON DIOXIDE 27.7 MMOL/L (24-32); TOTAL PROTEIN 7.1 G/DL (6.4-8.2); eGFR 63 ML/MIN
[2020-09-14] MEDS ORDERED: HYDROcodone/acetaminophen 5mg/325mg tablet PO ONE (19:40)
[2020-09-14 20:14] LABS: D-DIMER 2.03 MG/L FEU (0-0.50)
[2020-09-14] MEDS ORDERED: iohexol 350MG/ML 100ml bottle IV ONE ×2 (20:39→21:15)
[2020-09-14] MEDS ORDERED: morphine 4 MG/ML inj SYRINge IV ONE (20:40)
[2020-09-14 22:51] VITALS: BP 144/85
== END 2020-09-14 22:50 | disposition home or self-care (01) ==
LOC: ER 18:11
DX: R91.1 Solitary pulmonary nodule (principal); D53.9 Nutritional anemia, unspecified; I11.0 Hypertensive heart disease with heart failure; I21.9 Acute myocardial infarction, unspecified; J44.1 Chronic obstructive pulmonary disease with (acute) exacerbation; K21.9 Gastro-esophageal reflux disease without esophagitis; Z88.6 Allergy status to analgesic agent; Z88.1 Allergy status to other antibiotic agents; Z88.8 Allergy status to other drugs, medicaments and biological substances; Z20.828 Contact with and (suspected) exposure to other viral communicable diseases
CPT/HCPCS: 36415; 71045; 71275; 80053; 83605; 83880; 84484; 85025; 85379; 85610; 87040; 87635; 96374; 99285; C9803; J2270; Q9967

== ENCOUNTER 2020-09-23 17:31 | Emergency (ER) | payer MEDICARE, MEDICAID ==
[~2020-09-23] VITALS: Ht 157.5 cm; Wt 140.9 kg
[2020-09-23 18:07] LABS: BASOPHILS # (AUTO) 0.1 X10'3 (0-0.2); BASOPHILS % (AUTO) 0.7 % (0-1); EOSINOPHILS # (AUTO) 0.3 X10'3 (0-0.9); EOSINOPHILS % (AUTO) 1.9 % (0-6); HEMATOCRIT 30.6 % (35.0-45.0); HEMOGLOBIN 9.4 g/dl (12.0-16.0); LYMPHOCYTES # (AUTO) 4.5 X10'3 (1.1-4.8); LYMPHOCYTES % (AUTO) 27.4 % (21-51); MEAN CORPUSCULAR HGB CONC 30.6 g/dL (33.0-36.5); MEAN CORPUSCULAR VOLUME 71.8 FL (78-98); MEAN PLATELET VOLUME 7.8 FL (7.4-10.4); MONOCYTES # (AUTO) 1.3 X10'3 (0-0.9); MONOCYTES % (AUTO) 8.1 % (2-12); NEUTROPHILS # (AUTO) 10.1 X10'3 (1.8-7.7); NEUTROPHILS % (AUTO) 61.9 % (42-75); PLATELET COUNT 480 X10'3 (140-440); RED BLOOD COUNT 4.26 X10'6 (4.20-5.60); RED CELL DISTRIBUTION WIDTH 20.1 % (11.5-14.5); WHITE BLOOD COUNT 16.3 X10'3 (4.5-11.0)
[2020-09-23 18:28] LABS: ALANINE AMINOTRANSFERASE 15 U/L (12-78); ALBUMIN/GLOBULIN RATIO 0.8 (1.1-1.5); ALKALINE PHOSPHATASE 82 IU/L (46-116); ANION GAP 12 (8-16); ASPARTATE AMINO TRANSFERASE 12 U/L (10-37); BILIRUBIN,TOTAL 0.3 MG/DL (0.1-1.0); BLOOD UREA NITROGEN 15 MG/DL (7-18); BUN/CREATININE RATIO 13.9 (6.6-38.0); CALCIUM 9.1 MG/DL (8.5-10.1); CHLORIDE 102 MMOL/L (99-107); CREATININE 1.08 MG/DL (0.40-0.90); GLUCOSE 274 MG/DL (70-104); SODIUM 142 MMOL/L (135-145); TOTAL CARBON DIOXIDE 27.7 MMOL/L (24-32); TOTAL PROTEIN 6.9 G/DL (6.4-8.2); eGFR 52 ML/MIN
[2020-09-23] MEDS ORDERED: diltiazem 5mg/ml 5ml inj. IV ONE ×2 (18:30→19:00)
[2020-09-23] MEDS ORDERED: normal saline 1000ml 1,000 ML IV ONE (18:30)
[2020-09-23 18:55] LABS: ANISOCYTOSIS 3+; MICROCYTOSIS 1+; PLATELET ESTIMATE NORMAL
[2020-09-23] MEDS ORDERED: morphine ER 30mg tablet PO ONE (18:55)
[2020-09-23 18:56] LABS: HYPOCHROMASIA 1+; TEAR DROP CELLS FEW
[2020-09-23] MEDS ORDERED: metoprolol tartrate 1mg/ml inj IV ONE ×3 (19:50→21:15)
[2020-09-23] MEDS ORDERED: magnesium 2GM in 50ml NS 50 ML IV ONE (19:50)
[2020-09-23] MEDS ORDERED: metoprolol succinate 25mg (24-HOUR) SR. Tablet PO ONE (21:15)
[2020-09-23] MEDS ORDERED: ondansetron 4mg rapidly disintigrating tab PO ONE (21:40)
[2020-09-23 21:58] VITALS: BP 109/66
== END 2020-09-23 22:00 | disposition home or self-care (01) ==
LOC: ER 17:33
DX: R00.2 Palpitations (principal); I48.92 Unspecified atrial flutter; I25.10 Atherosclerotic heart disease of native coronary artery without angina pectoris; I50.9 Heart failure, unspecified; I11.0 Hypertensive heart disease with heart failure; K21.9 Gastro-esophageal reflux disease without esophagitis; E78.00 Pure hypercholesterolemia, unspecified; J44.9 Chronic obstructive pulmonary disease, unspecified; Z86.711 Personal history of pulmonary embolism; N28.9 Disorder of kidney and ureter, unspecified; G47.30 Sleep apnea, unspecified; E11.9 Type 2 diabetes mellitus without complications; G89.29 Other chronic pain; M19.90 Unspecified osteoarthritis, unspecified site; M06.9 Rheumatoid arthritis, unspecified; Z90.49 Acquired absence of other specified parts of digestive tract; Z98.891 History of uterine scar from previous surgery; Z86.73 Personal history of transient ischemic attack (TIA), and cerebral infarction without residual deficits; Z88.8 Allergy status to other drugs, medicaments and biological substances; Z79.82 Long term (current) use of aspirin; Z79.899 Other long term (current) drug therapy
CPT/HCPCS: 36415; 71045; 80053; 83880; 84145; 84484; 85008; 85025; 93005; 96361; 96365; 96366; 96375; 96376; 99285; J3475; J7030; J3490

== ENCOUNTER 2020-11-13 15:04 | Emergency (ER) | payer MEDICARE, MEDICAID ==
[~2020-11-13] VITALS: Ht 157.5 cm; Wt 152.7 kg
[2020-11-13] MEDS ORDERED: albuterol 2.5 MG/3 ML nebule CONTNEB PRN (15:35)
[2020-11-13 15:53] LABS: BASOPHILS % (AUTO) 0.4 % (0-1); EOSINOPHILS # (AUTO) 0.1 X10'3 (0-0.9); EOSINOPHILS % (AUTO) 0.9 % (0-6); HEMATOCRIT 26.8 % (35.0-45.0); HEMOGLOBIN 8.2 g/dl (12.0-16.0); LYMPHOCYTES # (AUTO) 1.5 X10'3 (1.1-4.8); MEAN CORPUSCULAR HEMOGLOBIN 21.3 PG (27.0-31.0); MEAN CORPUSCULAR HGB CONC 30.4 g/dL (33.0-36.5); MEAN CORPUSCULAR VOLUME 70.1 FL (78-98); MEAN PLATELET VOLUME 8.2 FL (7.4-10.4); MONOCYTES # (AUTO) 0.6 X10'3 (0-0.9); MONOCYTES % (AUTO) 4.4 % (2-12); NEUTROPHILS # (AUTO) 11.5 X10'3 (1.8-7.7); NEUTROPHILS % (AUTO) 83.3 % (42-75); PLATELET COUNT 426 X10'3 (140-440); RED BLOOD COUNT 3.83 X10'6 (4.20-5.60); RED CELL DISTRIBUTION WIDTH 20.2 % (11.5-14.5); WHITE BLOOD COUNT 13.8 X10'3 (4.5-11.0)
[2020-11-13 16:02] LABS: ALANINE AMINOTRANSFERASE 22 U/L (12-78); ALBUMIN 2.8 G/DL (3.4-5.0); ALBUMIN/GLOBULIN RATIO 0.6 (1.1-1.5); ALKALINE PHOSPHATASE 86 IU/L (46-116); ANION GAP 6 (8-16); ASPARTATE AMINO TRANSFERASE 50 U/L (10-37); BILIRUBIN,TOTAL 0.2 MG/DL (0.1-1.0); BLOOD UREA NITROGEN 14 MG/DL (7-18); BUN/CREATININE RATIO 20.6 (6.6-38.0); CHLORIDE 97 MMOL/L (99-107); CREATININE 0.68 MG/DL (0.40-0.90); GLUCOSE 234 MG/DL (70-104); POTASSIUM 4.6 MMOL/L (3.5-5.1); SODIUM 132 MMOL/L (135-145); TOTAL CARBON DIOXIDE 29.5 MMOL/L (24-32); TOTAL PROTEIN 7.3 G/DL (6.4-8.2); eGFR 88 ML/MIN
[2020-11-13 16:28] LABS: ANISOCYTOSIS 3+; HYPOCHROMASIA 1+; MICROCYTOSIS 1+; PLATELET ESTIMATE NORMAL
[2020-11-13 16:29] LABS: LARGE PLATELETS FEW; POLYCHROMASIA FEW; STOMATOCYTES 1+
[2020-11-13] MEDS ORDERED: AZIT-63 PO (17:01)
[2020-11-13 17:23] VITALS: BP 107/62
== END 2020-11-13 17:25 | disposition home or self-care (01) ==
LOC: ER 15:05
DX: J44.9 Chronic obstructive pulmonary disease, unspecified (principal); R06.02 Shortness of breath; R06.09 Other forms of dyspnea; R05 Cough; Z20.822 Contact with and (suspected) exposure to COVID-19; I25.10 Atherosclerotic heart disease of native coronary artery without angina pectoris; I50.9 Heart failure, unspecified; E78.00 Pure hypercholesterolemia, unspecified; I25.2 Old myocardial infarction; K21.9 Gastro-esophageal reflux disease without esophagitis; E11.9 Type 2 diabetes mellitus without complications; M19.90 Unspecified osteoarthritis, unspecified site; G89.29 Other chronic pain; Z87.01 Personal history of pneumonia (recurrent); Z86.711 Personal history of pulmonary embolism; Z90.49 Acquired absence of other specified parts of digestive tract; Z98.890 Other specified postprocedural states; Z88.8 Allergy status to other drugs, medicaments and biological substances; Z79.82 Long term (current) use of aspirin; Z79.2 Long term (current) use of antibiotics; Z79.899 Other long term (current) drug therapy
CPT/HCPCS: 71045; 80053; 83880; 84484; 85008; 85025; 87635; 93005; 99285; C9803

== ENCOUNTER 2021-05-02 17:13 | Emergency (ER) | payer MEDICARE, MEDICAID ==
[~2021-05-02] VITALS: Ht 157.5 cm; Wt 150.0 kg
[2021-05-02] MEDS ORDERED: acetaminophen 325mg tablet PO ONE (21:15)
[2021-05-02] MEDS ORDERED: ondansetron 4mg rapidly disintigrating tab PO ONE (21:15)
[2021-05-02] MEDS ORDERED: dexamethasone 4mg tablet PO ONE (23:10)
[2021-05-02] MEDS ORDERED: morphine ER 30mg tablet PO ONE (23:30)
[2021-05-02] MEDS ORDERED: morphine ER 15mg tablet PO ONE (23:35)
--- NOTE | 2021-05-03 08:12 | NUR ---
Spoke to [facility] regarding open MRI scanner. They state that the earliest possible appointment is for the 16 of May(13 days from now). They were also able to look in pt's chart notes as she is an established pt and she has required the open scanner previously.
[2021-05-03] MEDS ORDERED: morphine ER 30mg tablet PO SCH (08:25)
[2021-05-03] MEDS ORDERED: morphine ER 15mg tablet PO ONE (08:30)
[2021-05-03] MEDS ORDERED: ondansetron/PF 4mg/2ml inj IV ONE (10:35)
[2021-05-03] MEDS ORDERED: ondansetron 4mg rapidly disintigrating tab PO ONE (10:50)
--- NOTE | 2021-05-03 11:00 | NUR ---
Pt transported to [facility] for MRI by JORDI C[place]AND with RN accompanying.
[2021-05-03] MEDS ORDERED: morphine 4 MG/ML inj SYRINge IM ONE (13:10)
[2021-05-03 13:11] VITALS: BP 124/70
== END 2021-05-03 17:15 | disposition home or self-care (01) ==
LOC: ER 17:15
DX: M21.371 Foot drop, right foot (principal); G89.29 Other chronic pain; R20.0 Anesthesia of skin; I25.10 Atherosclerotic heart disease of native coronary artery without angina pectoris; I50.9 Heart failure, unspecified; E78.00 Pure hypercholesterolemia, unspecified; I25.2 Old myocardial infarction; J44.9 Chronic obstructive pulmonary disease, unspecified; K21.9 Gastro-esophageal reflux disease without esophagitis; E11.9 Type 2 diabetes mellitus without complications; M19.90 Unspecified osteoarthritis, unspecified site; Z86.711 Personal history of pulmonary embolism; Z90.49 Acquired absence of other specified parts of digestive tract; Z98.890 Other specified postprocedural states; Z88.8 Allergy status to other drugs, medicaments and biological substances; Z88.6 Allergy status to analgesic agent; Z79.82 Long term (current) use of aspirin; Z79.899 Other long term (current) drug therapy
CPT/HCPCS: 73610; 93005; 96372; 99284; J2270